=== PATIENT | male | born 1995 | race Caucasian/White ===

== ENCOUNTER 2018-11-30 15:31 | Inpatient (IN) | payer MEDICAID, OTHER ==
[2018-11-30 15:47] VITALS: BMI 18.3
--- NOTE | 2018-11-30 16:01 | ED PDOC ---
Arrival/HPI - General Chief Complaint: Fever Time Seen by Provider: 11/30/18 15:38 Historian: Patient - History of Present Illness Narrative History of Present Illness (Text): 11/30/18 16:01 A 23 year old male with no significant past medical history, presents to the ED complaining of fever for the past week. Patient reports associated sore throat, headache, chills, body aches and dark yellow urine. Patient notes he saw his [facility] doctor (Dr. Soriano) and he sent him in to the ED for an evaluation. Patient denies any dizziness, chest pain, shortness of breath, dyspnea on exertion, cough, abdominal pain, nausea, vomiting, diarrhea, back pain, neck pain, or any other complaints. PMD: Dr. Soriano Time/Duration: 1 week Symptom Onset: Gradual Symptom Course: Unchanged Activities at Onset: Light Context: Home Past Medical History - Provider Review Nursing Documentation Reviewed: Yes Primary Care Provider: Edson Soriano - Infectious Disease Hx of Infectious Diseases: None - Psychiatric Hx Substance Use: Yes - Anesthesia Hx Anesthesia: No Family/Social History - Physician Review Nursing Documentation Reviewed: Yes Family/Social History: Unknown Family HX Smoking Status: Heavy Smoker > 10 Cigarettes Daily Hx Alcohol Use: No Hx Substance Use: Yes Substance used: heroine Allergies/Home Meds Allergies/Adverse Reactions: Allergies No Known Allergies Allergy (Verified 11/30/18 15:47) Home Medications: Home Meds Medication Instructions Recorded Confirmed No Known Home Med 11/30/18 11/30/18 Review of Systems - Physician Review All systems were reviewed & negative as marked: Yes - Review of Systems Constitutional: Fevers Gastrointestinal: absent: Diarrhea Genitourinary Male: absent: Dysuria Neurological: Headache Physical Exam - Physical Exam Narrative Physical Exam (Text): 11/30/18 16:16 Gen: VS reviewed, alert, well developed, well nourished, nontoxic, mild distress. ENT: normal pharynx. Eye: EOMI, PERRL. Neck: no JVD, supple, no adenopathy. CV: regular rate, regular rhythm, no rubs, no murmur, no gallops, S1, S2, pulses equal and strong. Pulm: no distress, clear to auscultation, no wheeze, no rhonchi, breath sounds equal, no rales. Abd: soft, nontender, no guarding, no rebound, no rigidity, normal bowel sounds. Ext: no edema. track juan on both arms. Skin: good color, no rash, no cyanosis, no cellulolytic skin changes. Psych: responds appropriately to questions, normal affect. Neuro: oriented x 3, CN2-12 intact grossly, motor intact, sensation intact. Vital Signs Reviewed: Yes Vital Signs Temp Pulse Resp BP Pulse Ox 11/30/18 15:47 102.5 F H 82 18 99/59 L 98 Temperature: Febrile Blood Pressure: Hypotensive Pulse: Regular Respiratory Rate: Normal Medical Decision Making ED Course and Treatment: 11/30/18 16:18 Impression: A 23 year old patient who presents to the ED complaining of a fever for the past 5 days. Differential Diagnosis included but are not limited to: Plan: -- Labs -- VBG -- EKG -- Chest X-Ray -- Vancomycin injection -- IV Fluids -- Urinalysis -- Reassess and disposition Prior Visits: Notes and results from previous visits were reviewed. Progress Notes: 11/30/18 16:[address] soriano, patient to be admitted for fever and positive blood cultures. Empiric antibiotics started. Patient did not exhibit any s/s of opiod withdrawal during ED course. - Lab Interpretations Narrative Lab Interpretation (Text): 11/30/18 17:42 Chest X-Ray IMPRESSION: No active disease. - RAD Interpretation Radiology Orders: 11/30/18 15:59 CHEST PORTABLE [RAD] Stat - Scribe Statement The provider has reviewed the documentation as recorded by the Radha Mejia Provider Scribe Attestation: All medical record entries made by the Radha were at my direction and personally dictated by me. I have reviewed the chart and agree that the record accurately reflects my personal performance of the history, physical exam, medical decision making, and the department course for this patient. I have also personally directed, reviewed, and agree with the discharge instructions and disposition. Disposition/Present on Arrival - Present on Arrival Any Indicators Present on Arrival: No History of DVT/PE: No History of Uncontrolled Diabetes: No Urinary Catheter: No History of Decub. Ulcer: No History Surgical Site Infection Following: None - Disposition Have Diagnosis and Disposition been Completed?: Yes Diagnosis: Bacteremia Disposition Time: 16:50 Patient Plan: Admission Patient Problems: Current Active Problems Problem Status Onset Bacteremia Acute Condition: STABLE
[2018-11-30] MEDS ORDERED: Vancomycin 500 mg Inj IVPB STA (16:03)
[2018-11-30 16:31] LABS: VENOUS BLOOD GAS BASE EXCESS 0.8 mmol/L (0.0-2.0); VENOUS BLOOD GAS PO2 23 mm/Hg (30-55); VENOUS BLOOD PH 7.37 (7.32-7.43)
[2018-11-30 16:42] LABS: ALB/GLOB RATIO 1.3 (1.1-1.8); ALBUMIN 4.7 g/dL (3.0-4.8); ALT/SGPT 19 U/L (7-56); AST/SGOT 29 U/L (17-59); BASO # 0.02 K/mm3 (0.0-2.0); BASO % 0.2 % (0.0-3.0); BLOOD UREA NITROGEN 12 mg/dL (7-21); CALCIUM 9.4 mg/dL (8.4-10.5); EOS % 0.1 % (1.5-5.0); GFR NON-AFRICAN AMERICAN > 60; HEMOGLOBIN 12.9 g/dL (14.0-18.0); LYMPH % 19.1 % (22.0-35.0); MEAN CELL VOLUME 82.3 fl (80.0-105.0); MEAN CORPUSCULAR HEMOGLOBIN 26.9 pg (25.0-35.0); MEAN CORPUSCULAR HGB CONC 32.7 g/dl (31.0-37.0); MEAN PLATELET VOLUME 9.8 fl (7.0-11.0); MONO # 0.8 (0.1-0.6); MONO % 7.6 % (1.0-6.0); RBC 4.8 10^6/uL (3.5-6.1); RED CELL DISTRIBUTION WIDTH 13.9 % (11.5-14.5); WHITE BLOOD COUNT 10.2 10^3/uL (4.5-11.0)
--- NOTE | 2018-11-30 17:14 | RAD ---
Date of service: 11/30/2018 HISTORY: pneumonia COMPARISON: No prior. FINDINGS: LUNGS: No active pulmonary disease. PLEURA: No significant pleural effusion identified, no pneumothorax apparent. CARDIOVASCULAR: No atherosclerotic calcification present Normal. OSSEOUS STRUCTURES: No significant abnormalities. VISUALIZED UPPER ABDOMEN: Normal. OTHER FINDINGS: None. IMPRESSION: No active disease.
[2018-11-30] MEDS: Sodium Chloride 0.9% 1,000 ML IV SCH ×2 (17:24→23:04)
[2018-11-30 19:39] LABS: URINE BILIRUBIN NEGATIVE (NEGATIVE); URINE BLOOD NEGATIVE (NEGATIVE); URINE GLUCOSE (UA) NEGATIVE (NEGATIVE); URINE LEUKOCYTE ESTERASE NEGATIVE Leu/uL (NEGATIVE); URINE PROTEIN TRACE mg/dL (<30 mg/dL); URINE UROBILINOGEN 0.2 E.U./dL (<1 E.U./dL)
[2018-11-30 19:40] LABS: URINE APPEARANCE CLEAR (CLEAR); URINE COLOR YELLOW (YELLOW)
[2018-11-30 19:51] LABS: URINE BACTERIA FEW /hpf; URINE WBC 0 - 2 /hpf (0-6)
[2018-11-30] MEDS ORDERED: cefTRIAXone 2 GM IN NS 2 GM/100 ML BAG IVPB SCH (20:21)
[2018-11-30] MEDS: Vancomycin 1gm in NS 250ml 1 GM/250 ML BAG IVPB SCH (20:39)
[2018-12-01] MEDS: Oxycodone/Acetaminophen 5/325 mg Tab PO PRN ×3 (01:56→14:26)
[2018-12-01] MEDS: Sodium Chloride 0.9% 1,000 ML IV SCH ×2 (06:35→14:21)
--- NOTE | 2018-12-01 06:50 | CP.PCM.CON ---
<Vaughn Briscoe - Last Filed: 12/01/18 08:04> History of Present Illness - History of Present Illness History of Present Illness: Infectious disease consult note: 23-year-old male with past medical history of IV drug abuse with heroin presents with fevers, chills, and sore throat. Patient states that he was just recently in [facility] for similar symptoms. The report for the hospital stay was sent to his primary doctor and he was instructed to come to the hospital for positive blood cultures. Patient states that he uses heroin on a daily basis last use was yesterday. He denies any prior history of heart disease or endocarditis. He denies any other drug usage. 12 point ROS performed negative other than stated above PMH: As above PSH: Denies Allergies no known allergies SH: IV drug use with heroin, smokes 1 pack/day for past few years, denies any drinking FH: Denies Review of Systems - Review of Systems All systems: reviewed and no additional remarkable complaints except Past Patient History - Infectious Disease Hx of Infectious Diseases: None - Past Social History Smoking Status: Never Smoked - CARDIAC Hx Cardiac Disorders: No - PULMONARY Hx Respiratory Disorders: No - NEUROLOGICAL Hx Neurological Disorder: No - HEENT Hx HEENT Problems: No - RENAL Hx Chronic Kidney Disease: No - ENDOCRINE/METABOLIC Hx Endocrine Disorders: No - HEMATOLOGICAL/ONCOLOGICAL Hx Blood Disorders: No - INTEGUMENTARY Hx Dermatological Problems: No - MUSCULOSKELETAL/RHEUMATOLOGICAL Hx Musculoskeletal Disorders: No Hx Falls: No - GASTROINTESTINAL Hx Gastrointestinal Disorders: No - GENITOURINARY/GYNECOLOGICAL Hx Genitourinary Disorders: No - PSYCHIATRIC Hx Psychophysiologic Disorder: No - SURGICAL HISTORY Hx Surgeries: No - ANESTHESIA Hx Anesthesia: No Meds Allergies/Adverse Reactions: Allergies Allergy/AdvReac Type Severity Reaction Status Date / Time No Known Allergies Allergy Verified 11/30/18 15:47 - Medications Medications: Current Medications Acetaminophen (Tylenol 325mg Tab) 650 mg PO Q4H PRN PRN Reason: Fever >100.4 F Last Admin: 12/01/18 00:00 Dose: 650 mg Home Med (Home Med) 1 unit SL BID IVAN Sodium Chloride (Sodium Chloride 0.9%) 1,000 mls @ 150 mls/hr IV .Q6H40M IVAN Last Admin: 12/01/18 06:35 Dose: 150 mls/hr Ceftriaxone Sodium (Rocephin 2 Gm Ivpb) 2 gm in 100 mls @ 100 mls/hr IVPB DAILY IVAN; Protocol Stop: 12/09/18 20:22 Last Admin: 11/30/18 20:44 Dose: 100 mls/hr Vancomycin HCl (Vancomycin 1gm) 1 gm in 250 mls @ 167 mls/hr IVPB Q12H IVAN; Protocol Stop: 12/08/18 20:31 Last Admin: 11/30/18 20:39 Dose: 167 mls/hr Oxycodone/Acetaminophen (Percocet 5/325 Mg Tab) 1 tab PO Q4 PRN PRN Reason: Pain, moderate (4-7) Stop: 12/03/18 20:01 Last Admin: 12/01/18 01:56 Dose: 1 tab Physical Exam - Constitutional Appears: No Acute Distress - Head Exam Head Exam: ATRAUMATIC, NORMOCEPHALIC - Eye Exam Eye Exam: EOMI, PERRL - ENT Exam ENT Exam: Mucous Membranes Moist - Respiratory Exam Respiratory Exam: Clear to Auscultation Bilateral. absent: Rales, Wheezes - Cardiovascular Exam Cardiovascular Exam: REGULAR RHYTHM, +S1, +S2 - GI/Abdominal Exam GI & Abdominal Exam: Normal Bowel Sounds, Soft. absent: Tenderness - Extremities Exam Extremities exam: Negative for: calf tenderness, pedal edema Additional comments: No lesions Or abnormalities on the extremities, no janeway or osler b/l upper extremity track juan, no cellulites - Neurological Exam Neurological exam: Alert, CN II-XII Intact, Oriented x3 - Psychiatric Exam Psychiatric exam: Normal Mood - Skin Skin Exam: Dry, Warm Results - Vital Signs Recent Vital Signs: Last Vital Signs Temp 98.1 F 12/01/18 06:00 Pulse 96 H 11/30/18 23:01 Resp 20 11/30/18 23:01 BP 114/61 11/30/18 23:01 Pulse Ox 97 11/30/18 23:01 - Labs Result Diagrams: 11/30/18 16:15 11/30/18 16:15 Labs: Laboratory Results - last 24 hr 11/30/18 11/30/18 11/30/18 16:15 16:15 16:20 WBC 10.2 RBC 4.80 Hgb 12.9 L Hct 39.5 L MCV 82.3 MCH 26.9 MCHC 32.7 RDW 13.9 Plt Count 171 MPV 9.8 Neut % (Auto) 73.0 H Lymph % (Auto) 19.1 L Franklin % (Auto) 7.6 H Eos % (Auto) 0.1 L Baso % (Auto) 0.2 Lymph # (Auto) 2.0 Franklin # (Auto) 0.8 H Eos # (Auto) 0.0 Baso # (Auto) 0.02 Absolute Neuts (auto) 7.46 H pO2 23 L VBG pH 7.37 VBG pCO2 46.0 VBG HCO3 26.6 VBG Total CO2 28.0 VBG O2 Sat (Calc) 47.9 VBG Base Excess 0.8 VBG Potassium 4.3 Glucose 87 Lactate 1.0 FiO2 21.0 Sodium 135 132.0 Potassium 4.5 Chloride 97 L 99.0 Carbon Dioxide 27 Anion Gap 16 BUN 12 Creatinine 0.9 Est GFR ( Amer) > 60 Est GFR (Non-Af Amer) > 60 Random Glucose 94 Calcium 9.4 Total Bilirubin 0.8 AST 29 ALT 19 Alkaline Phosphatase 89 Total Protein 8.4 H Albumin 4.7 Globulin 3.7 Albumin/Globulin Ratio 1.3 Venous Blood Potassium 4.3 Urine Color Urine Appearance Urine pH Ur Specific [place] Urine Protein Urine Glucose (UA) Urine Ketones Urine Blood Urine Nitrate Urine Bilirubin Urine Urobilinogen Ur Leukocyte Esterase Urine RBC Urine WBC Urine Bacteria 11/30/18 19:29 WBC RBC Hgb Hct MCV MCH MCHC RDW Plt Count MPV Neut % (Auto) Lymph % (Auto) Franklin % (Auto) Eos % (Auto) Baso % (Auto) Lymph # (Auto) Franklin # (Auto) Eos # (Auto) Baso # (Auto) Absolute Neuts (auto) pO2 VBG pH VBG pCO2 VBG HCO3 VBG Total CO2 VBG O2 Sat (Calc) VBG Base Excess VBG Potassium Glucose Lactate FiO2 Sodium Potassium Chloride Carbon Dioxide Anion Gap BUN Creatinine Est GFR ( Amer) Est GFR (Non-Af Amer) Random Glucose Calcium Total Bilirubin AST ALT Alkaline Phosphatase Total Protein Albumin Globulin Albumin/Globulin Ratio Venous Blood Potassium Urine Color Yellow Urine Appearance Clear Urine pH 6.0 Ur Specific [place] 1.020 Urine Protein Trace H Urine Glucose (UA) Negative Urine Ketones Trace H Urine Blood Negative Urine Nitrate Negative Urine Bilirubin Negative Urine Urobilinogen 0.2 Ur Leukocyte Esterase Negative Urine RBC None Urine WBC 0 - 2 Urine Bacteria Few Assessment & Plan - Assessment and Plan (Free Text) Assessment: Sepsis with Bacteremiarule out endocarditis IV drug abuse with heroin Active smoker Continue with vancomycin and meropenem Follow-up repeat blood cultures and septic work-up Obtain echo to rule out any endocarditis Follow-up cardiology recommendations consult Continue to monitor for any changes Case and plan was to be reviewed and discussed with Dr. Vickers <Lenny Vickers - Last Filed: 12/01/18 08:05> Meds - Medications Medications: Current Medications Acetaminophen (Tylenol 325mg Tab) 650 mg PO Q4H PRN PRN Reason: Fever >100.4 F Last Admin: 12/01/18 00:00 Dose: 650 mg Home Med (Home Med) 1 unit SL BID IVAN Sodium Chloride (Sodium Chloride 0.9%) 1,000 mls @ 150 mls/hr IV .Q6H40M IVAN Last Admin: 12/01/18 06:35 Dose: 150 mls/hr Vancomycin HCl (Vancomycin 1gm) 1 gm in 250 mls @ 167 mls/hr IVPB Q12H IVAN; Protocol Stop: 12/08/18 20:31 Last Admin: 11/30/18 20:39 Dose: 167 mls/hr Meropenem (Merrem Iv 1 Gm Premix) 1 gm in 50 mls @ 100 mls/hr IVPB Q8 IVAN; Protocol Stop: 12/10/18 14:01 Oxycodone/Acetaminophen (Percocet 5/325 Mg Tab) 1 tab PO Q4 PRN PRN Reason: Pain, moderate (4-7) Stop: 12/03/18 20:01 Last Admin: 12/01/18 01:56 Dose: 1 tab Results - Vital Signs Recent Vital Signs: Last Vital Signs Temp 98.1 F 12/01/18 06:00 Pulse 78 12/01/18 06:00 Resp 19 12/01/18 06:00 BP 127/79 12/01/18 06:00 Pulse Ox 97 12/01/18 06:00 - Labs Result Diagrams: 11/30/18 16:15 11/30/18 16:15 Labs: Laboratory Results - last 24 hr 11/30/18 11/30/18 11/30/18 16:15 16:15 16:15 WBC 10.2 RBC 4.80 Hgb 12.9 L Hct 39.5 L MCV 82.3 MCH 26.9 MCHC 32.7 RDW 13.9 Plt Count 171 MPV 9.8 Neut % (Auto) 73.0 H Lymph % (Auto) 19.1 L Franklin % (Auto) 7.6 H Eos % (Auto) 0.1 L Baso % (Auto) 0.2 Lymph # (Auto) 2.0 Franklin # (Auto) 0.8 H Eos # (Auto) 0.0 Baso # (Auto) 0.02 Absolute Neuts (auto) 7.46 H pO2 VBG pH VBG pCO2 VBG HCO3 VBG Total CO2 VBG O2 Sat (Calc) VBG Base Excess VBG Potassium Glucose Lactate FiO2 Sodium 135 Potassium 4.5 Chloride 97 L Carbon Dioxide 27 Anion Gap 16 BUN 12 Creatinine 0.9 Est GFR ( Amer) > 60 Est GFR (Non-Af Amer) > 60 Random Glucose 94 Calcium 9.4 Total Bilirubin 0.8 AST 29 ALT 19 Alkaline Phosphatase 89 Total Protein 8.4 H Albumin 4.7 Globulin 3.7 Albumin/Globulin Ratio 1.3 Venous Blood Potassium Urine Color Urine Appearance Urine pH Ur Specific [place] Urine Protein Urine Glucose (UA) Urine Ketones Urine Blood Urine Nitrate Urine Bilirubin Urine Urobilinogen Ur Leukocyte Esterase Urine RBC Urine WBC Urine Bacteria HIV 1&2 Ag/Ab, 4th Gen Nonreactive 11/30/18 11/30/18 16:20 19:29 WBC RBC Hgb Hct MCV MCH MCHC RDW Plt Count MPV Neut % (Auto) Lymph % (Auto) Franklin % (Auto) Eos % (Auto) Baso % (Auto) Lymph # (Auto) Franklin # (Auto) Eos # (Auto) Baso # (Auto) Absolute Neuts (auto) pO2 23 L VBG pH 7.37 VBG pCO2 46.0 VBG HCO3 26.6 VBG Total CO2 28.0 VBG O2 Sat (Calc) 47.9 VBG Base Excess 0.8 VBG Potassium 4.3 Glucose 87 Lactate 1.0 FiO2 21.0 Sodium 132.0 Potassium Chloride 99.0 Carbon Dioxide Anion Gap BUN Creatinine Est GFR ( Amer) Est GFR (Non-Af Amer) Random Glucose Calcium Total Bilirubin AST ALT Alkaline Phosphatase Total Protein Albumin Globulin Albumin/Globulin Ratio Venous Blood Potassium 4.3 Urine Color Yellow Urine Appearance Clear Urine pH 6.0 Ur Specific [place] 1.020 Urine Protein Trace H Urine Glucose (UA) Negative Urine Ketones Trace H Urine Blood Negative Urine Nitrate Negative Urine Bilirubin Negative Urine Urobilinogen 0.2 Ur Leukocyte Esterase Negative Urine RBC None Urine WBC 0 - 2 Urine Bacteria Few HIV 1&2 Ag/Ab, 4th Gen Attending/Attestation - Attestation I have personally seen and examined this patient.: Yes I have fully participated in the care of the patient.: Yes I have reviewed all pertinent clinical information: Yes
--- NOTE | 2018-12-01 08:28 | CP.PCM.CON ---
History of Present Illness - History of Present Illness History of Present Illness: Awake, alert, no distress Reason for consultation: Cardiac evaluation to rule out endocarditis, admitted for fever and chills Brief history of present illness: A 23 year old male who came in to the ER due to fever, chills and sore throat for the past few days. He was just recently seen at [facility] for similar symptoms. He claimed to take heroin at least 10 bags per day. Last drug use was yesterday and then felt fever and chills. Denies any other medical history. He smokes 1 pack per day for the past few years. Consult was called to rule out endocarditis. Seen and examined by me and Dr. Abel Review of Systems - Review of Systems All systems: reviewed and no additional remarkable complaints except Review of Systems: as per HPI Past Patient History - Infectious Disease Hx of Infectious Diseases: None - Past Social History Smoking Status: Never Smoked - CARDIAC Hx Cardiac Disorders: No - PULMONARY Hx Respiratory Disorders: No - NEUROLOGICAL Hx Neurological Disorder: No - HEENT Hx HEENT Problems: No - RENAL Hx Chronic Kidney Disease: No - ENDOCRINE/METABOLIC Hx Endocrine Disorders: No - HEMATOLOGICAL/ONCOLOGICAL Hx Blood Disorders: No - INTEGUMENTARY Hx Dermatological Problems: No - MUSCULOSKELETAL/RHEUMATOLOGICAL Hx Musculoskeletal Disorders: No Hx Falls: No - GASTROINTESTINAL Hx Gastrointestinal Disorders: No - GENITOURINARY/GYNECOLOGICAL Hx Genitourinary Disorders: No - PSYCHIATRIC Hx Psychophysiologic Disorder: No - SURGICAL HISTORY Hx Surgeries: No - ANESTHESIA Hx Anesthesia: No Meds Allergies/Adverse Reactions: Allergies Allergy/AdvReac Type Severity Reaction Status Date / Time No Known Allergies Allergy Verified 11/30/18 15:47 - Medications Medications: Current Medications Acetaminophen (Tylenol 325mg Tab) 650 mg PO Q4H PRN PRN Reason: Fever >100.4 F Last Admin: 12/01/18 00:00 Dose: 650 mg Clonazepam (Klonopin) 0.5 mg PO BID IVAN; Protocol Home Med (Home Med) 1 unit SL BID IVAN Sodium Chloride (Sodium Chloride 0.9%) 1,000 mls @ 150 mls/hr IV .Q6H40M IVAN Last Admin: 12/01/18 06:35 Dose: 150 mls/hr Vancomycin HCl (Vancomycin 1gm) 1 gm in 250 mls @ 167 mls/hr IVPB Q12H IVAN; Protocol Stop: 12/08/18 20:31 Last Admin: 11/30/18 20:39 Dose: 167 mls/hr Meropenem (Merrem Iv 1 Gm Premix) 1 gm in 50 mls @ 100 mls/hr IVPB Q8 IVAN; Protocol Stop: 12/10/18 14:01 Oxycodone/Acetaminophen (Percocet 5/325 Mg Tab) 1 tab PO Q4 PRN PRN Reason: Pain, moderate (4-7) Stop: 12/03/18 20:01 Last Admin: 12/01/18 01:56 Dose: 1 tab Physical Exam - Constitutional Appears: Non-toxic, No Acute Distress - Head Exam Head Exam: NORMAL INSPECTION, NORMOCEPHALIC - Eye Exam Eye Exam: Normal appearance Pupil Exam: NORMAL ACCOMODATION - ENT Exam ENT Exam: Mucous Membranes Moist, Normal Exam - Respiratory Exam Respiratory Exam: Decreased Breath Sounds, Clear to Auscultation Bilateral, NORMAL BREATHING PATTERN - Cardiovascular Exam Cardiovascular Exam: +S1, +S2 - GI/Abdominal Exam GI & Abdominal Exam: Normal Bowel Sounds, Soft - Neurological Exam Neurological exam: Alert, Oriented x3 - Psychiatric Exam Psychiatric exam: Normal Affect, Normal Mood - Skin Skin Exam: Dry, Warm Results - Vital Signs Recent Vital Signs: Last Vital Signs Temp 98.1 F 12/01/18 06:00 Pulse 78 12/01/18 06:00 Resp 19 12/01/18 06:00 BP 127/79 12/01/18 06:00 Pulse Ox 97 12/01/18 06:00 - Labs Result Diagrams: 11/30/18 16:15 11/30/18 16:15 Labs: Laboratory Results - last 24 hr 11/30/18 11/30/18 11/30/18 16:15 16:15 16:15 WBC 10.2 RBC 4.80 Hgb 12.9 L Hct 39.5 L MCV 82.3 MCH 26.9 MCHC 32.7 RDW 13.9 Plt Count 171 MPV 9.8 Neut % (Auto) 73.0 H Lymph % (Auto) 19.1 L Lamar % (Auto) 7.6 H Eos % (Auto) 0.1 L Baso % (Auto) 0.2 Lymph # (Auto) 2.0 Lamar # (Auto) 0.8 H Eos # (Auto) 0.0 Baso # (Auto) 0.02 Absolute Neuts (auto) 7.46 H pO2 VBG pH VBG pCO2 VBG HCO3 VBG Total CO2 VBG O2 Sat (Calc) VBG Base Excess VBG Potassium Glucose Lactate FiO2 Sodium 135 Potassium 4.5 Chloride 97 L Carbon Dioxide 27 Anion Gap 16 BUN 12 Creatinine 0.9 Est GFR ( Amer) > 60 Est GFR (Non-Af Amer) > 60 Random Glucose 94 Calcium 9.4 Total Bilirubin 0.8 AST 29 ALT 19 Alkaline Phosphatase 89 Total Protein 8.4 H Albumin 4.7 Globulin 3.7 Albumin/Globulin Ratio 1.3 Venous Blood Potassium Urine Color Urine Appearance Urine pH Ur Specific [place] Urine Protein Urine Glucose (UA) Urine Ketones Urine Blood Urine Nitrate Urine Bilirubin Urine Urobilinogen Ur Leukocyte Esterase Urine RBC Urine WBC Urine Bacteria HIV 1&2 Ag/Ab, 4th Gen Nonreactive 11/30/18 11/30/18 16:20 19:29 WBC RBC Hgb Hct MCV MCH MCHC RDW Plt Count MPV Neut % (Auto) Lymph % (Auto) Lamar % (Auto) Eos % (Auto) Baso % (Auto) Lymph # (Auto) Lamar # (Auto) Eos # (Auto) Baso # (Auto) Absolute Neuts (auto) pO2 23 L VBG pH 7.37 VBG pCO2 46.0 VBG HCO3 26.6 VBG Total CO2 28.0 VBG O2 Sat (Calc) 47.9 VBG Base Excess 0.8 VBG Potassium 4.3 Glucose 87 Lactate 1.0 FiO2 21.0 Sodium 132.0 Potassium Chloride 99.0 Carbon Dioxide Anion Gap BUN Creatinine Est GFR ( Amer) Est GFR (Non-Af Amer) Random Glucose Calcium Total Bilirubin AST ALT Alkaline Phosphatase Total Protein Albumin Globulin Albumin/Globulin Ratio Venous Blood Potassium 4.3 Urine Color Yellow Urine Appearance Clear Urine pH 6.0 Ur Specific [place] 1.020 Urine Protein Trace H Urine Glucose (UA) Negative Urine Ketones Trace H Urine Blood Negative Urine Nitrate Negative Urine Bilirubin Negative Urine Urobilinogen 0.2 Ur Leukocyte Esterase Negative Urine RBC None Urine WBC 0 - 2 Urine Bacteria Few HIV 1&2 Ag/Ab, 4th Gen Assessment & Plan - Assessment and Plan (Free Text) Assessment: A 23 year old male who came in to the ER due to fever, chills and sore throat for the past few days. He was just recently seen at [facility] for similar symptoms. He claimed to take heroin at least 10 bags per day. Last drug use was yesterday and then felt fever and chills. Seen by PMD and sent to ER for positive blood cultures. Denies any other medical history. He smokes 1 pack per day for the past few years. He does not work and does not go to school. Consult was called to rule out endocarditis. Will order echo to rule out endocarditis. ID on consult. Started on IV antibiotics. Repeat blood and urine culture ordered. Plan: No distress Will order echo to rule out endocarditis ID on consult Continue IV antibiotics as ordered Repeat blood and urine culture Continue current treatment Continue current medications Watch out for withdrawal symptoms Further recommendations after ECHO Lifestyle modification Complete cessation of heroin use and smoking Nicoderm patch Will follow up Plan and treatment discussed with Dr. Abel Thank you Dr. Weiss for the opportunity of taking care of Doni Hill - Date & Time Date: 12/01/18 Time: 06:20
[2018-12-01] MEDS: Vancomycin 1gm in NS 250ml 1 GM/250 ML BAG IVPB SCH ×2 (09:17→21:41)
[2018-12-01] MEDS: Pantoprazole 40 mg EC Tab PO SCH (09:29)
[2018-12-01] MEDS ORDERED: Meropenem IV 1 gm in NS 1 GM/50 ML BAG IVPB SCH (14:00)
--- NOTE | 2018-12-01 15:51 | CARD ---
APPROVED REPORT Date of service: 11/30/2018 EKG Measurement Heart [id number] <Conclusion> Normal sinus rhythm with sinus arrhythmia Normal Electrocardiogram
[2018-12-01] MEDS: SUBUTEX 8 MG SL SCH (17:27)
[2018-12-01] MEDS ORDERED: Oxycodone/Acetaminophen 5/325 mg Tab PO ONE (18:45)
--- NOTE | 2018-12-01 19:36 | HP ---
DATE OF EXAM: 12/01/2018 HISTORY OF PRESENT ILLNESS: The patient came in our office for evaluation of his addiction problem of heroin, found to have gram-positive cocci in the blood x2, blood cultures results sent to me by [facility] laboratory. The patient had a fever and has chills, he does use IV drugs. The patient was advised to be admitted to [facility] for further evaluation of possible endocarditis and endovascular infections and ID consultations and cardiac consultations. PAST MEDICAL HISTORY: As above. ALLERGIES: HE HAS NO KNOWN ALLERGY. SOCIAL HISTORY: He is not working, he will work on and off, but with the heroin he is not. 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 He has a very supportive father, family. REVIEW OF SYSTEMS: Usually negative except some anxiety probably from not having the drugs and some episodic over activity from not having the heroin. He usually in the past had used Xanax and sometimes Klonopin, which make him feel better if he does not have heroin, but otherwise physically he feels okay, all his symptoms are more drug related mental symptoms. PHYSICAL EXAMINATION VITAL SIGNS: Temperature 102.3, heart rate 89, blood pressure 99/70, respirations 19, and sat 98%. HEAD AND NECK: Normal. No JVD, no thyromegaly. CHEST: Clear bilateral. CARDIAC: First sound and second sound normal with a very faint murmur. ABDOMEN: Soft and nontender. EXTREMITIES: No edema. NEUROLOGIC: Normal. LABORATORY STUDY: White count 10.2, hemoglobin 12.9, hematocrit 39.5, platelets 171. Sodium 135, potassium 4.5, chloride 97, bicarb 27, BUN 12, creatinine 0.9. Liver function test is normal. Total protein 8.4. IMPRESSION AND PLAN: Gram-positive bacteremia, fever, sepsis, possible endocarditis. Cardiology consult Dr. Abel; Infectious Disease consult, Dr. Vickers. Intravenous fluids. We will give him some Percocet to relieve his addiction symptoms for now. Continue Percocet, we will give him some Neurontin, Motrin for symptomatic relief, maybe some Zanaflex, alpha blockers. We will continue current therapy for now. We will get a Psychiatry consult and we will follow up clinically. Protonix, Klonopin and we will start some Subutex for him in the morning and we will continue current therapy. Edson Weiss MD
--- NOTE | 2018-12-02 07:09 | CP.PCM.PN ---
Subjective - Date & Time of Evaluation Date of Evaluation: 12/02/18 Time of Evaluation: 06:35 - Subjective Subjective: Awake, alert, no distress, feels okay Reason for consultation and follow up: Cardiac evaluation to rule out endocarditis, admitted for fever and chills,current heroin drug use Seen and examined by me and Dr. Abel Objective - Vital Signs/Intake and Output Vital Signs (last 24 hours): Temp Pulse Resp BP Pulse Ox 98.7 F 52 L 18 87/44 L 97 12/01/18 22:34 12/01/18 22:34 12/01/18 22:34 12/01/18 22:34 12/01/18 22:34 Intake and Output: 12/02/18 12/02/18 06:59 18:59 Intake Total 620 Balance 620 - Medications Medications: Current Medications Acetaminophen (Tylenol 325mg Tab) 650 mg PO Q4H PRN PRN Reason: Fever >100.4 F Last Admin: 12/01/18 00:00 Dose: 650 mg Clonazepam (Klonopin) 0.5 mg PO TID [facility]; Protocol Last Admin: 12/01/18 22:52 Dose: 0.5 mg Gabapentin (Neurontin) 100 mg PO BID [facility]; Protocol Last Admin: 12/01/18 17:26 Dose: 100 mg Home Med (Home Med) 1 unit SL BID [facility] Last Admin: 12/01/18 17:27 Dose: Not Given Sodium Chloride (Sodium Chloride 0.9%) 1,000 mls @ 150 mls/hr IV .Q6H40M [facility] Last Admin: 12/01/18 14:21 Dose: 150 mls/hr Vancomycin HCl (Vancomycin 1gm) 1 gm in 250 mls @ 167 mls/hr IVPB Q12H [facility]; Protocol Stop: 12/08/18 20:31 Last Admin: 12/01/18 21:41 Dose: 167 mls/hr Nafcillin Sodium 2 gm/ (Dextrose) 100 mls @ 100 mls/hr IVPB Q6 [facility]; Protocol Stop: 12/10/18 21:01 Last Admin: 12/02/18 01:25 Dose: Not Given Ibuprofen (Motrin Tab) 400 mg PO Q6H PRN PRN Reason: Pain, Mild (1-3) Mirtazapine (Remeron) 15 mg PO HS [facility] Last Admin: 12/01/18 22:52 Dose: 15 mg Nicotine (Nicoderm Cq) 1 patch TD DAILY [facility] Last Admin: 12/01/18 09:17 Dose: 1 patch Oxycodone/Acetaminophen (Percocet 5/325 Mg Tab) 1 tab PO Q4 PRN PRN Reason: Pain, moderate (4-7) Stop: 12/03/18 20:01 Last Admin: 12/01/18 14:26 Dose: 1 tab Pantoprazole Sodium (Protonix Ec Tab) 40 mg PO ACB [facility] Last Admin: 12/01/18 09:29 Dose: 40 mg Tizanidine HCl (Zanaflex) 4 mg PO TID [facility] Last Admin: 12/01/18 17:26 Dose: 4 mg - Labs Labs: 11/30/18 16:15 11/30/18 16:15 - Constitutional Appears: Non-toxic, No Acute Distress - Head Exam Head Exam: NORMAL INSPECTION, NORMOCEPHALIC - Eye Exam Eye Exam: Normal appearance Pupil Exam: NORMAL ACCOMODATION - ENT Exam ENT Exam: Mucous Membranes Moist, Normal Exam - Respiratory Exam Respiratory Exam: Clear to Ausculation Bilateral, NORMAL BREATHING PATTERN - Cardiovascular Exam Cardiovascular Exam: +S1, +S2 - GI/Abdominal Exam GI & Abdominal Exam: Soft, Normal Bowel Sounds - Extremities Exam Extremities Exam: Full ROM, Normal Capillary Refill - Neurological Exam Neurological Exam: Alert, Awake, Oriented x3 - Psychiatric Exam Psychiatric exam: Normal Affect, Normal Mood - Skin Skin Exam: Dry, Normal Color, Warm Assessment and Plan - Assessment and Plan (Free Text) Assessment: A 23 year old male who came in to the ER due to fever, chills and sore throat for the past few days. He was just recently seen at [facility] for similar symptoms. He claimed to take heroin at least 10 bags per day. Last drug use was yesterday and then felt fever and chills. Seen by PMD and sent to ER for positive blood cultures. Denies any other medical history. He smokes 1 pack per day for the past few years. He does not work and does not go to school. Consult was called to rule out endocarditis. ID on consult. Continue IV antibiotics.culture Echo done yesterday and showed LVEF 57%, mild enlargement of the left atrium, mild posteriormitral valve prolapse, moderate mitral regurgiation, RVSP 29 mmHg,no pericardial effusion, NO VEGETATION noted. Ruled out endocarditis. No distress. Blood culture positive for gram positive cocci, repeat blood culture done today. Plan: No distress Echo and NO VEGETATION noted ID on consult Continue IV antibiotics as ordered Repeat blood culture today Continue current treatment Continue current medications Watch out for withdrawal symptoms Lifestyle modification Complete cessation of heroin use and smoking Will follow up Plan and treatment discussed with Dr. Abel
[2018-12-02 07:10] LABS: BASO # 0.02 K/mm3 (0.0-2.0); BASO % 0.3 % (0.0-3.0); EOS # 0.2 (0.0-0.7); EOS % 2.2 % (1.5-5.0); HEMOGLOBIN 11.7 g/dL (14.0-18.0); LYMPH # 3.7 (1.2-3.4); LYMPH % 52.9 % (22.0-35.0); MEAN CELL VOLUME 83.3 fl (80.0-105.0); MEAN CORPUSCULAR HEMOGLOBIN 26.8 pg (25.0-35.0); MEAN CORPUSCULAR HGB CONC 32.2 g/dl (31.0-37.0); MEAN PLATELET VOLUME 10.1 fl (7.0-11.0); MONO # 0.7 (0.1-0.6); MONO % 10.1 % (1.0-6.0); RBC 4.36 10^6/uL (3.5-6.1); RED CELL DISTRIBUTION WIDTH 14.1 % (11.5-14.5); WHITE BLOOD COUNT 6.9 10^3/uL (4.5-11.0)
[2018-12-02 07:23] LABS: ALB/GLOB RATIO 1.1 (1.1-1.8); ALBUMIN 3.7 g/dL (3.0-4.8); ALT/SGPT 23 U/L (7-56); AST/SGOT 22 U/L (17-59); BLOOD UREA NITROGEN 9 mg/dL (7-21); GFR NON-AFRICAN AMERICAN > 60; HDL CHOLESTEROL 24 mg/dL (29-60)
[2018-12-02 07:33] LABS: LDL CHOLESTEROL 113 mg/dL (0-129)
[2018-12-02] MEDS: Vancomycin 1gm in NS 250ml 1 GM/250 ML BAG IVPB SCH ×2 (08:27→21:00)
[2018-12-02] MEDS: Pantoprazole 40 mg EC Tab PO SCH (08:28)
--- NOTE | 2018-12-02 09:22 | CARD ---
APPROVED REPORT Date of service: 12/01/2018 EXAM: Two-dimensional and M-mode echocardiogram with Doppler and color Doppler. INDICATION Infection:Rule out subacute bacterial endocarditis 2D DIMENSIONS Left Atrium (2D)4.3 (1.6-4.0cm)IVSd0.9 (0.7-1.1cm) LVDd5.1 (3.9-5.9cm)PWd1.0 (0.7-1.1cm) LVDs3.6 (2.5-4.0cm)FS (%) 30.0 % LVEF (%)57.1 (>50%) M-Mode DIMENSIONS Aortic Root3.20 (2.2-3.7cm)Aortic Cusp Exc.2.40 (1.5-2.0cm) Aortic Valve AoV Peak Coxogldr533.0cm/Carola Peak GR.7mmHg Mitral Valve MV E Cmxprqvk43.7cm/sMV A Ddtpccpp49.5cm/sE/A ratio2.7 TDI E/Lateral E'0.0E/Medial E'0.0 Pulmonary Valve PV Peak Voalbjgh56.9cm/sPV Peak Grad.3mmHg Tricuspid Valve TR Peak Rbdqdoob767gq/sRAP [id number] Peak Gr.19mmHg [id number] LEFT VENTRICLE The left ventricle is normal size. The left ventricular function is normal. The left ventricular ejection fraction is within the normal range.Ej.Fr:57%. RIGHT VENTRICLE The right ventricle is normal size. The right ventricular systolic function is normal. ATRIA The left atrium size is normal. The right atrium size is normal. AORTIC VALVE The aortic valve is normal in structure. MITRAL VALVE Mitral Valve shows Mild Posterior motion suggestive of Mild Prolapse. Mitral regurgitation is moderate. There is no mitral valve stenosis. Redundant elongated chordae are noted. TRICUSPID VALVE The tricuspid valve is normal in structure. RVSP:29mm Hg. PERICARDIAL EFFUSION There is no pericardial effusion. <Conclusion> The left ventricle is normal size. The left ventricular function is normal. The left ventricular ejection fraction is within the normal range.Ej.Fr:57%. The right ventricle is normal size. The right ventricular systolic function is normal. The left atrium shows mild enlargement. The right atrium size is normal. The aortic valve is normal in structure. Mitral Valve shows Mild Posterior motion suggestive of Mild Prolapse. Redundant Chordae noted Moderate Mitral Regurge. The tricuspid valve is normal in structure. The tricuspid valve is normal in structure. RVSP:29mm Hg. There is no pericardial effusion. No vegetation noted.
[2018-12-02] MEDS: SUBUTEX 8 MG SL SCH ×2 (09:45→17:34)
--- NOTE | 2018-12-02 13:37 | CON ---
DATE OF CONSULTATION: 12/02/2018 HISTORY OF PRESENT ILLNESS: In short, the patient is a 23-year-old gentleman. The patient does not have any significant past medical history. The patient was admitted on the medical side for fevers for the past week. The patient reported that he had sore throat, headaches, chills, body aches, and dark yellow urine. In the emergency room, urine drug screen was not done. The patient most likely is using opioids, blood showed gram-positive cocci and sepsis. Psych consult was called for evaluation of anxiety. The patient was seen and examined today at the morning time. The patient presented to be withdrawn and disengaged. The patient is laying in darkness and also it is very hot in his room. The patient most likely was feeling chills, that is why he requested to turn the heater on. The patient was disengaged and not willing to have interview. The patient was giving only yes/no answers. The patient denied that he feels depressed. The patient denied feeling anxious. The patient reported that he slept well. The patient denied being seen by psychiatrist in the past. The patient denied being on any psychotropic medications. The patient denied hearing voices, denied seeing things. Collaterals were obtained from the patient's nurse. The patient does not exhibit any aggressive or agitated behavior. The patient is compliant with the medications and treatment plan offered. PHYSICAL EXAMINATION: VITAL SIGNS: Reviewed. Temperature 98.8, pulse is 52, blood pressure 87/44, respirations 18, oxygen saturation is 97. MEDICATIONS: Reviewed. The patient is on Klonopin 0.5 mg three times a day. HOME MEDICATION: Subutex ordered, Remeron 15 mg was started. The patient is on antibiotics, (nafcillin), and also vancomycin. The patient also is on Lyrica, Protonix, Nicoderm. LABORATORY DATA: Labs reviewed, and this grant writer reported that the patient has gram-positive cocci in the blood. MENTAL STATUS EVALUATION: The patient presented to be disengaged and withdrawn, laying in darkness. Mood described as okay. Affect was flat. Thought process was concrete. Thought content, the patient denied hearing voices, denied seeing things, denied paranoid ideation. The patient denied thoughts of harming himself or others. The patient denied feeling anxious. The patient does not present to be psychotic or depressed. Insight and judgment seemed to be limited until possible opioid addiction. Impulses are well controlled. IMPRESSION: Sepsis, most likely the patient has opioid use disorder, but the patient was not forthcoming with information. PLAN: Subutex was ordered by medical team. Monitor withdrawal symptoms. Remeron and Klonopin were started by medical team. The patient did not want this grant writer to follow up on him. We will respect that decision. The patient is not agitated, not aggressive. Burglar Alarm Superintendent needed to be involved. If the patient is using drugs, inpatient rehab should be offered. Meanwhile re-consult as needed. Jessica Mustafa MD
[2018-12-02] MEDS ORDERED: Potassium Chloride 20 mEq ER Tab PO ONE (15:18)
--- NOTE | 2018-12-02 16:03 | CP.PCM.PN ---
<Vaughn Briscoe - Last Filed: 12/02/18 16:01> Subjective - Date & Time of Evaluation Date of Evaluation: 12/02/18 Time of Evaluation: 10:00 - Subjective Subjective: Infectious disease progress note: Patient seen and examined at bedside. No acute events overnight. Denies any fever or chills at this time. No other complaints. 12 point ROS performed and negative unless stated above. Objective - Vital Signs/Intake and Output Vital Signs (last 24 hours): Temp Pulse Resp BP Pulse Ox 98.7 F 52 L 18 87/44 L 97 12/01/18 22:34 12/01/18 22:34 12/01/18 22:34 12/01/18 22:34 12/01/18 22:34 Intake and Output: 12/02/18 12/02/18 06:59 18:59 Intake Total 620 180 Balance 620 180 - Medications Medications: Current Medications Acetaminophen (Tylenol 325mg Tab) 650 mg PO Q4H PRN PRN Reason: Fever >100.4 F Last Admin: 12/01/18 00:00 Dose: 650 mg Clonazepam (Klonopin) 0.5 mg PO TID [facility]; Protocol Last Admin: 12/02/18 13:38 Dose: 0.5 mg Home Med (Home Med) 1 unit SL BID [facility] Last Admin: 12/02/18 09:45 Dose: Not Given Sodium Chloride (Sodium Chloride 0.9%) 1,000 mls @ 150 mls/hr IV .Q6H40M [facility] Last Admin: 12/01/18 14:21 Dose: 150 mls/hr Vancomycin HCl (Vancomycin 1gm) 1 gm in 250 mls @ 167 mls/hr IVPB Q12H [facility]; Protocol Stop: 12/08/18 20:31 Last Admin: 12/02/18 08:27 Dose: 167 mls/hr Nafcillin Sodium 2 gm/ (Dextrose) 100 mls @ 100 mls/hr IVPB Q6 [facility]; Protocol Stop: 12/10/18 21:01 Last Admin: 12/02/18 12:15 Dose: 100 mls/hr Ibuprofen (Motrin Tab) 400 mg PO Q6H PRN PRN Reason: Pain, Mild (1-3) Mirtazapine (Remeron) 15 mg PO HS [facility] Last Admin: 12/01/18 22:52 Dose: 15 mg Nicotine (Nicoderm Cq) 1 patch TD DAILY [facility] Last Admin: 12/02/18 09:46 Dose: Not Given Pantoprazole Sodium (Protonix Ec Tab) 40 mg PO ACB [facility] Last Admin: 12/02/18 08:28 Dose: 40 mg Pregabalin (Lyrica) 50 mg PO BID [facility] Last Admin: 12/02/18 09:43 Dose: 50 mg Tizanidine HCl (Zanaflex) 4 mg PO TID [facility] Last Admin: 12/02/18 13:38 Dose: 4 mg - Labs Labs: 12/02/18 06:40 12/02/18 06:40 - Constitutional Appears: No Acute Distress - Head Exam Head Exam: ATRAUMATIC, NORMOCEPHALIC - Eye Exam Eye Exam: EOMI - ENT Exam ENT Exam: Mucous Membranes Moist - Respiratory Exam Respiratory Exam: Clear to Ausculation Bilateral. absent: Wheezes - Cardiovascular Exam Cardiovascular Exam: REGULAR RHYTHM, +S1, +S2. absent: Murmur - Extremities Exam Extremities Exam: absent: Calf Tenderness, Pedal Edema - Neurological Exam Neurological Exam: Alert, Awake - Psychiatric Exam Psychiatric exam: Normal Mood - Skin Skin Exam: Dry, Warm Assessment and Plan - Assessment and Plan (Free Text) Assessment: Sepsis with Bacteremia with gram positve cocci IV drug abuse with heroin Active smoker Continue with Vancomycin and started with Nafcillin Follow-up repeat blood cultures and septic work-up Obtain echo - no vegatations indicative of endocarditis Follow-up cardiology recommendations consult Continue to monitor for any changes Case and plan was to be reviewed and discussed with Dr. Vickers <Lenny Vickers - Last Filed: 12/02/18 16:17> Objective - Vital Signs/Intake and Output Vital Signs (last 24 hours): Temp Pulse Resp BP Pulse Ox 98.7 F 52 L 18 87/44 L 97 12/01/18 22:34 12/01/18 22:34 12/01/18 22:34 12/01/18 22:34 12/01/18 22:34 Intake and Output: 12/02/18 12/02/18 06:59 18:59 Intake Total 620 180 Balance 620 180 - Medications Medications: Current Medications Acetaminophen (Tylenol 325mg Tab) 650 mg PO Q4H PRN PRN Reason: Fever >100.4 F Last Admin: 12/01/18 00:00 Dose: 650 mg Clonazepam (Klonopin) 0.5 mg PO TID [facility]; Protocol Last Admin: 12/02/18 13:38 Dose: 0.5 mg Home Med (Home Med) 1 unit SL BID [facility] Last Admin: 12/02/18 09:45 Dose: Not Given Sodium Chloride (Sodium Chloride 0.9%) 1,000 mls @ 150 mls/hr IV .Q6H40M [facility] Last Admin: 12/01/18 14:21 Dose: 150 mls/hr Vancomycin HCl (Vancomycin 1gm) 1 gm in 250 mls @ 167 mls/hr IVPB Q12H [facility]; Protocol Stop: 12/08/18 20:31 Last Admin: 12/02/18 08:27 Dose: 167 mls/hr Nafcillin Sodium 2 gm/ (Dextrose) 100 mls @ 100 mls/hr IVPB Q6 [facility]; Protocol Stop: 12/10/18 21:01 Last Admin: 12/02/18 12:15 Dose: 100 mls/hr Ibuprofen (Motrin Tab) 400 mg PO Q6H PRN PRN Reason: Pain, Mild (1-3) Mirtazapine (Remeron) 15 mg PO HS [facility] Last Admin: 12/01/18 22:52 Dose: 15 mg Nicotine (Nicoderm Cq) 1 patch TD DAILY [facility] Last Admin: 12/02/18 09:46 Dose: Not Given Pantoprazole Sodium (Protonix Ec Tab) 40 mg PO ACB [facility] Last Admin: 12/02/18 08:28 Dose: 40 mg Pregabalin (Lyrica) 50 mg PO BID [facility] Last Admin: 12/02/18 09:43 Dose: 50 mg Tizanidine HCl (Zanaflex) 4 mg PO TID [facility] Last Admin: 12/02/18 13:38 Dose: 4 mg - Labs Labs: 12/02/18 06:40 12/02/18 06:40 Attending/Attestation - Attestation I have personally seen and examined this patient.: Yes I have fully participated in the care of the patient.: Yes I have reviewed all pertinent clinical information, including history, physical exam and plan: Yes
[2018-12-02] MEDS: Sodium Chloride 0.9% 1,000 ML IV SCH (17:36)
[2018-12-02 21:14] VITALS: BP 113/66; PULSE 93; RESP 20; TEMP 98.2; O2SAT 99
--- NOTE | 2018-12-03 06:46 | CP.PCM.PN ---
Subjective - Date & Time of Evaluation Date of Evaluation: 12/03/18 Time of Evaluation: 06:20 - Subjective Subjective: Lying in bed, Awake, alert, no distress Reason for consultation and follow up: Cardiac evaluation, ruled out endocarditis, admitted for fever and chills, current heroin drug use Seen and examined by me and Dr. Abel Objective - Vital Signs/Intake and Output Vital Signs (last 24 hours): Temp Pulse Resp BP Pulse Ox 98.2 F 93 H 20 113/66 99 12/02/18 21:14 12/02/18 21:14 12/02/18 21:14 12/02/18 21:14 12/02/18 21:14 Intake and Output: 12/02/18 12/03/18 18:59 06:59 Intake Total 180 Balance 180 - Medications Medications: Current Medications Acetaminophen (Tylenol 325mg Tab) 650 mg PO Q4H PRN PRN Reason: Fever >100.4 F Last Admin: 12/02/18 20:55 Dose: 650 mg Clonazepam (Klonopin) 0.5 mg PO TID [facility]; Protocol Last Admin: 12/02/18 17:34 Dose: 0.5 mg Home Med (Home Med) 1 unit SL BID [facility] Last Admin: 12/02/18 17:34 Dose: 1 unit Sodium Chloride (Sodium Chloride 0.9%) 1,000 mls @ 150 mls/hr IV .Q6H40M [facility] Last Admin: 12/02/18 17:36 Dose: 150 mls/hr Vancomycin HCl (Vancomycin 1gm) 1 gm in 250 mls @ 167 mls/hr IVPB Q12H [facility]; Protocol Stop: 12/08/18 20:31 Last Admin: 12/02/18 21:00 Dose: 167 mls/hr Nafcillin Sodium 2 gm/ (Dextrose) 100 mls @ 100 mls/hr IVPB Q6 [facility]; Protocol Stop: 12/10/18 21:01 Last Admin: 12/03/18 05:23 Dose: 100 mls/hr Ibuprofen (Motrin Tab) 400 mg PO Q6H PRN PRN Reason: Pain, Mild (1-3) Mirtazapine (Remeron) 15 mg PO HS [facility] Last Admin: 12/02/18 20:59 Dose: 15 mg Nicotine (Nicoderm Cq) 1 patch TD DAILY [facility] Last Admin: 12/02/18 09:46 Dose: Not Given Pantoprazole Sodium (Protonix Ec Tab) 40 mg PO ACB [facility] Last Admin: 12/02/18 08:28 Dose: 40 mg Pregabalin (Lyrica) 50 mg PO BID [facility] Last Admin: 12/02/18 17:34 Dose: 50 mg Tizanidine HCl (Zanaflex) 4 mg PO TID [facility] Last Admin: 12/02/18 17:34 Dose: 4 mg - Labs Labs: 12/02/18 06:40 12/02/18 06:40 - Constitutional Appears: Non-toxic, No Acute Distress - Head Exam Head Exam: NORMAL INSPECTION - Eye Exam Eye Exam: Normal appearance Pupil Exam: NORMAL ACCOMODATION - ENT Exam ENT Exam: Mucous Membranes Moist, Normal Exam - Respiratory Exam Respiratory Exam: Decreased Breath Sounds, Clear to Ausculation Bilateral, NO RMAL BREATHING PATTERN - Cardiovascular Exam Cardiovascular Exam: +S1, +S2 - GI/Abdominal Exam GI & Abdominal Exam: Soft, Normal Bowel Sounds - Extremities Exam Extremities Exam: Full ROM, Normal Capillary Refill - Neurological Exam Neurological Exam: Alert, Awake, Oriented x3 - Psychiatric Exam Psychiatric exam: Normal Affect, Normal Mood - Skin Skin Exam: Dry, Normal Color, Warm Assessment and Plan - Assessment and Plan (Free Text) Assessment: A 23 year old male who came in to the ER due to fever, chills and sore throat for the past few days. He was just recently seen at [facility] for similar symptoms. He claimed to take heroin at least 10 bags per day. Last drug use was a day prior to admission and then felt fever and chills. Seen by PMD and sent to ER for positive blood cultures. Denies any other medical history. He smokes 1 pack per day for the past few years. He does not work and does not go to school. Consult was called to rule out endocarditis. ID on consult. Continue IV antibiotics.culture Echo done yesterday and showed LVEF 57%, mild enlargement of the left atrium, mild posteriormitral valve prolapse, moderate mitral regurgiation, RVSP 29 mmHg,no pericardial effusion, No vegetation noted. Ruled out endocarditis. No distress. Blood culture positive for gram positive cocci, Repeat blood culture done awaiting results. Continue IV antibiotics as ordered. Afebrile. Plan: No distress,feels okay Cardiac status stable ID on consult Continue IV antibiotics as ordered Repeat blood culture done yesterday awaiting results Blood culture on admission showed gram positive cocci Continue current treatment Continue current medications Watch out for withdrawal symptoms Lifestyle modification Complete cessation of heroin use and smoking Will follow up Plan and treatment discussed with Dr. Abel
[2018-12-03] MEDS: Pantoprazole 40 mg EC Tab PO SCH (08:15)
[2018-12-03] MEDS: Vancomycin 1gm in NS 250ml 1 GM/250 ML BAG IVPB SCH (08:15)
--- NOTE | 2018-12-03 08:51 | PN ---
DATE: 12/02/2018 SUBJECTIVE: The patient is seen today. Feels is okay. Comfortable. Still complaining of bone pain. The patient does have a history of heroin IV use and benzodiazepine abuse. He was admitted for positive blood culture, fever of 102, and possible endocarditis. He is stable. Other than bone pains, no complaints. It is mainly in his feet, his bones in general. He also has problem sleeping, insomnia, hence he is a little bit anxious. PHYSICAL EXAMINATION: VITAL SIGNS: Temperature 98.7, heart rate 52, blood pressure is 109/61, respirations 19, saturation 98%. HEAD AND NECK: Normal. No JVD. No thyromegaly. CHEST: Clear bilaterally. CARDIAC: First sound and second sound normal. ABDOMEN: Soft and nontender. EXTREMITIES: No edema. NEUROLOGIC: Normal. LABORATORY DATA: The patient had repeat blood cultures, came back gram positive in clusters. He also had repeat white count 6.9, hemoglobin 11.7, hematocrit 36.3, platelets 176. His sodium is 145, potassium 3.6, chloride 109, bicarb 28, BUN 9, creatinine 0.7. Liver function test is normal. The patient had an echocardiogram, it is not read. Apparently does not show significant lesion transesophageal echo to the valves, tricuspid and other valves. We will discuss further with the engraver block. IMPRESSION AND PLAN: 1. Gram positive bacteremia clusters, currently on intravenous nafcillin. We will discuss with Infectious Disease and transesophageal echocardiogram is recommended. We will discuss with the engraver block. Continue current therapy. 2. History of heroin abuse. The patient is addicted to intravenous heroin. We will give him Subutex for now and see how he do. Continue Klonopin p.r.n. and continue Lyrica. We will add Lyrica to him. Continue Remeron at bedtime. Psychiatric evaluation has been ordered. We will see further recommendations. The patient does have also concurrent anxiety and we will continue current therapy for now. I did discuss with the patient in detail adherence of treatment. Edson Weiss MD [facility] # [id number]
[2018-12-03] MEDS ORDERED: Potassium Chloride 20 mEq ER Tab PO ONE (09:50)
[2018-12-03] MEDS: SUBUTEX 8 MG SL SCH (10:05)
--- NOTE | 2018-12-03 11:52 | PN ---
DATE: 12/03/2018 SUBJECTIVE: The patient is stable. No chest pain. No short of breath. Subutex p.o. today, . He has no fever. PHYSICAL EXAMINATION: On 12/02/2018; VITAL SIGNS: He has temperature 98, heart rate 93, blood pressure 115/66, respiration 20, and saturation 98%. HEAD AND NECK: Normal. No JVD. No thyromegaly. CHEST: Clear bilaterally. CARDIAC: First sound and second sound normal. No murmur, rub, or gallop. ABDOMEN: Soft and nontender. EXTREMITIES: No edema. NEUROLOGIC: Normal. IMPRESSION AND PLAN: 1. Positive bacteremia. We will rule out endocarditis. We will discuss with Cardiology. Continue nafcillin IV. The patient will need four weeks of IV antibiotics. 2. History of drug use disorder, heroin use disorder, benzodiazepine. We will decrease the medication gradually. He is on Subutex. We will decrease the Klonopin gradually. Continue current medications. He is getting Remeron, Lyrica and NicoDerm CQ, Klonopin p.r.n. 0.5, and Zanaflex 4 mg three times a day. Continue current medications. Follow up clinically. Edson Weiss MD
[2018-12-03] MEDS: Sodium Chloride 0.9% 1,000 ML IV SCH (13:21)
--- NOTE | 2018-12-03 15:30 | CP.PCM.PN ---
<Vaughn Briscoe - Last Filed: 12/03/18 16:43> Subjective - Date & Time of Evaluation Date of Evaluation: 12/03/18 Time of Evaluation: 09:05 - Subjective Subjective: Infectious disease progress note: Patient seen and examined at bedside. No acute events overnight. Denies any fever or chills. No other complaints. 12 point ROS performed and negative unless stated above. Objective - Vital Signs/Intake and Output Vital Signs (last 24 hours): Temp Pulse Resp BP Pulse Ox 98.2 F 93 H 20 113/66 99 12/02/18 21:14 12/02/18 21:14 12/02/18 21:14 12/02/18 21:14 12/02/18 21:14 Intake and Output: 12/03/18 12/03/18 06:59 18:59 Intake Total 620 Balance 620 - Medications Medications: Current Medications Acetaminophen (Tylenol 325mg Tab) 650 mg PO Q4H PRN PRN Reason: Fever >100.4 F Last Admin: 12/02/18 20:55 Dose: 650 mg Clonazepam (Klonopin) 0.5 mg PO TID [facility]; Protocol Last Admin: 12/03/18 13:20 Dose: 0.5 mg Home Med (Home Med) 1 unit SL BID [facility] Last Admin: 12/03/18 10:05 Dose: 1 unit Sodium Chloride (Sodium Chloride 0.9%) 1,000 mls @ 150 mls/hr IV .Q6H40M [facility] Last Admin: 12/03/18 13:21 Dose: 150 mls/hr Nafcillin Sodium 2 gm/ (Dextrose) 100 mls @ 100 mls/hr IVPB Q6 [facility]; Protocol Stop: 12/10/18 21:01 Last Admin: 12/03/18 13:21 Dose: 100 mls/hr Ibuprofen (Motrin Tab) 400 mg PO Q6H PRN PRN Reason: Pain, Mild (1-3) Mirtazapine (Remeron) 15 mg PO HS [facility] Last Admin: 12/02/18 20:59 Dose: 15 mg Nicotine (Nicoderm Cq) 1 patch TD DAILY [facility] Last Admin: 12/03/18 10:04 Dose: 1 patch Pantoprazole Sodium (Protonix Ec Tab) 40 mg PO ACB [facility] Last Admin: 05/17/19 08:15 Dose: 40 mg Pregabalin (Lyrica) 50 mg PO BID [facility] Last Admin: 12/03/18 10:05 Dose: 50 mg Tizanidine HCl (Zanaflex) 4 mg PO TID [facility] Last Admin: 12/03/18 13:20 Dose: 4 mg - Labs Labs: 12/02/18 06:40 12/02/18 06:40 - Constitutional Appears: No Acute Distress - Head Exam Head Exam: ATRAUMATIC, NORMOCEPHALIC - Eye Exam Eye Exam: EOMI - ENT Exam ENT Exam: Mucous Membranes Moist - Respiratory Exam Respiratory Exam: Clear to Ausculation Bilateral. absent: Wheezes - Cardiovascular Exam Cardiovascular Exam: REGULAR RHYTHM, RRR, +S1, +S2 - GI/Abdominal Exam GI & Abdominal Exam: Soft, Normal Bowel Sounds - Extremities Exam Extremities Exam: absent: Calf Tenderness, Pedal Edema - Neurological Exam Neurological Exam: Alert, Awake, Oriented x3 - Psychiatric Exam Psychiatric exam: Normal Mood - Skin Skin Exam: Dry, Warm Assessment and Plan - Assessment and Plan (Free Text) Assessment: Sepsis with bacteremia with staph aureus IV drug abuse with heroin Active smoker Continue with Nafcillin- d/pamela vanc Follow-up repeat blood cultures - repeat culture positive for coag neg staph - repeat cultures tomorrow Obtain echo - no vegatations indicative of endocarditis Follow-up cardiology recommendations consult Continue to monitor for any changes Case and plan was to be reviewed and discussed with Dr. Vickers <Lenny Vickers - Last Filed: 12/03/18 18:05> Objective - Vital Signs/Intake and Output Vital Signs (last 24 hours): Temp Pulse Resp BP Pulse Ox 98.2 F 93 H 20 113/66 99 12/02/18 21:14 12/02/18 21:14 12/02/18 21:14 12/02/18 21:14 12/02/18 21:14 Intake and Output: 12/03/18 12/03/18 06:59 18:59 Intake Total 620 Balance 620 - Labs Labs: 12/02/18 06:40 12/02/18 06:40 Attending/Attestation - Attestation I have personally seen and examined this patient.: Yes I have fully participated in the care of the patient.: Yes I have reviewed all pertinent clinical information, including history, physical exam and plan: Yes
== END 2018-12-03 13:45 | disposition left against medical advice (07) | DRG 720 ==
LOC: ED 15:31 → ERH 16:50 → 5RNO 20:04
PROVIDERS: ADMIT Internal Medicine; ATTEND Internal Medicine
DX: A41.01 Sepsis due to Methicillin susceptible Staphylococcus aureus (principal); F11.10 Opioid abuse, uncomplicated; G47.00 Insomnia, unspecified; F17.210 Nicotine dependence, cigarettes, uncomplicated; F41.9 Anxiety disorder, unspecified

== ENCOUNTER 2018-12-03 15:30 | Inpatient (IN) | payer MEDICAID, OTHER ==
[2018-12-03 15:30] VITALS: BMI 18.3
--- NOTE | 2018-12-03 17:00 | ED PDOC ---
Arrival/HPI - General Historian: Patient - History of Present Illness Narrative History of Present Illness (Text): 12/03/18 17:25 Patient is a 23 yo male with polysubstance use disorder (IV heroin, tobacco, benzos) who presents with bacteremia. Patient was admitted to the hospital for bacteremia receiving IV antibiotics for the past 3 days. Patient eloped from the hospital earlier today. He states that he felt like he did not need to be in the hospital anymore. He admits to using IV heroin today. He did not have the hep lock removed prior to elopement, but he denies using it for heroin administration. he says that he returned because the hospital called him and and his dad and told him that he could from his infection. Patient states that he will not elope again. He was informed of the AMA process if he wishes to leave prior to discharge in the future. Presently, patient is asymptomatic. <Jacklyn Meeks - Last Filed: 12/03/18 17:38> <Thai Stratton - Last Filed: 12/03/18 17:55> - General Chief Complaint: Abnormal Labs Time Seen by Provider: 12/03/18 16:05 Past Medical History - Infectious Disease Hx of Infectious Diseases: None - Cardiac Hx Cardiac Disorders: No - Pulmonary Hx Respiratory Disorders: No - Neurological Hx Neurological Disorder: No - HEENT Hx HEENT Disorder: No - Renal Hx Renal Disorder: No - Endocrine/Metabolic Hx Endocrine Disorders: No - Hematological/Oncological Hx Blood Disorders: No - Integumentary Hx Dermatological Disorder: No - Musculoskeletal/Rheumatological Hx Musculoskeletal Disorders: No Hx Falls: No - Gastrointestinal Hx Gastrointestinal Disorders: No - Genitourinary/Gynecological Hx Genitourinary Disorders: No - Psychiatric Hx Psychophysiologic Disorder: No Hx Substance Use: Yes - Anesthesia Hx Anesthesia: No <Jacklyn Meeks - Last Filed: 12/03/18 17:38> Family/Social History - Physician Review Nursing Documentation Reviewed: Yes Family/Social History: Unknown Family HX Smoking Status: Heavy Smoker > 10 Cigarettes Daily Hx Alcohol Use: No Hx Substance Use: Yes Substance used: heroin <Jacklyn Meeks - Last Filed: 12/03/18 17:38> Allergies/Home Meds <Jacklyn Meeks - Last Filed: 12/03/18 17:38> <Thai Stratton - Last Filed: 12/03/18 17:55> Allergies/Adverse Reactions: Allergies No Known Allergies Allergy (Verified 11/30/18 15:47) Home Medications: Home Meds Medication Instructions Recorded Confirmed No Known Home Med 11/30/18 11/30/18 Review of Systems - Review of Systems Constitutional: absent: Fatigue, Fevers, Night Sweats Eyes: Normal ENT: Normal Respiratory: absent: SOB, Cough Cardiovascular: absent: Chest Pain, Palpitations Gastrointestinal: absent: Abdominal Pain, Constipation, Diarrhea, Nausea, Vomiting Genitourinary Male: absent: Dysuria Musculoskeletal: absent: Arthralgias, Myalgias Skin: Skin Lesions (track juan on arms). absent: Rash, Pruritis, Abscess Neurological: absent: Headache, Dizziness Endocrine: absent: Diaphoresis Hemo/Lymphatic: absent: Adenopathy Psychiatric: Depression <Jacklyn Meeks - Last Filed: 12/03/18 17:38> Physical Exam Vital Signs Reviewed: Yes Temperature: Afebrile Blood Pressure: Normal Pulse: Regular Respiratory Rate: Normal Appearance: Positive for: Non-Toxic, Comfortable Pain Distress: None Mental Status: Positive for: Alert and Oriented X 3 - Systems Exam Head: Present: Atraumatic, Normocephalic Pupils: Present: PERRL Extroacular Muscles: Present: EOMI Conjunctiva: Present: Normal Mouth: Present: Moist Mucous Membranes Neck: Present: Normal Range of Motion Respiratory/Chest: Present: Clear to Auscultation, Good Air Exchange Cardiovascular: Present: Regular Rate and Rhythm, Normal S1, S2 Abdomen: No: Tenderness, Distention Upper Extremity: Present: Neurovascularly Intact, Other (b/l track juan, no abscesses, hep lock in L antecubital) Lower Extremity: Present: Normal Inspection Neurological: Present: GCS=15, CN II-XII Intact, Speech Normal Skin: Present: Warm, Dry, Normal Color Psychiatric: Present: Alert, Oriented x 3, Normal Insight, Normal Concentration <Jacklyn Meeks - Last Filed: 12/03/18 17:38> Medical Decision Making ED Course and Treatment: 12/03/18 17:[address] Weiss who accepts patient for readmission. He requests one dose of Nafcillin 2 g and UDS. - Lab Interpretations I have reviewed the lab results: Yes - Medication Orders Current Medication Orders: 12/03/18 17:34 Nafcillin 2g IV <Jacklyn Meeks - Last Filed: 12/03/18 17:38> ED Course and Treatment: 12/03/18 17:55 Patient Seen with Resident: In agreement with resident note which contains more details about the patient. Patient seen and evaluated with resident. Came up with plan and treatment together. - Medication Orders Current Medication Orders: Nafcillin Sodium 2 gm/ Sodium (Chloride) 100 mls @ 100 mls/hr IVPB ONCE ONE; Protocol Stop: 12/03/18 18:21 <Thai Stratton - Last Filed: 12/03/18 17:55> - PA / MANAGER SOURCING / Resident Statement / has reviewed & agrees with the documentation as recorded. / has examined the patient and agrees with the treatment plan. <Thai Stratton - Last Filed: 12/03/18 17:55> Disposition/Present on Arrival - Present on Arrival Any Indicators Present on Arrival: No History of DVT/PE: No History of Uncontrolled Diabetes: No Urinary Catheter: No History of Decub. Ulcer: No History Surgical Site Infection Following: None - Disposition Have Diagnosis and Disposition been Completed?: Yes Disposition Time: 17:35 Patient Plan: Admission <Jacklyn Meeks - Last Filed: 12/03/18 17:38> <Thai Stratton - Last Filed: 12/03/18 17:55> - Disposition Diagnosis: Bacteremia Disposition: HOSPITALIZED Patient Problems: Current Active Problems Problem Status Onset Bacteremia Acute Condition: GUARDED Referrals: PCP,NO [Primary Care Provider] - Follow up with primary Forms: pbsi (Romansh)
[2018-12-03] MEDS ORDERED: Nafcillin 2 GM in Sodium Chloride 0.9% 100 ML IVPB ONE (17:22)
[2018-12-03 19:33] LABS: BARBITURATES, UR NEGATIVE (NEGATIVE); BENZODIAZEPINES, UR NEGATIVE (NEGATIVE); OPIATES, UR POSITIVE (NEGATIVE); PHENCYCLIDINE, UR NEGATIVE (NEGATIVE)
[2018-12-03] MEDS ORDERED: Sodium Chloride 0.9% 1,000 ML IV ONE (20:54)
[2018-12-04] MEDS ORDERED: Pneumococcal 23-Valent Vaccine IM ONE (00:40)
[2018-12-04] MEDS ORDERED: Sodium Chloride 0.9% 1,000 ML IV SCH (05:30)
--- NOTE | 2018-12-04 09:43 | CON ---
DATE OF CONSULTATION: 12/04/2018 The patient is seen in 565. The patient was in the hospital for a chief complaint of weakness. HISTORY OF PRESENT ILLNESS: This is a 23-year-old Citizen Of [place] male with a history of intravenous drug abuse, who was just recently admitted, found to have sensitive staph aureus bacteremia, possibly endocarditis. The patient walked off the floor by now and used drugs and came back now, readmitted. REVIEW OF SYSTEMS: Reviewed. PAST MEDICAL HISTORY: Noncontributory except the recent hospitalization for bacteremia. The patient does have intravenous heroin. PAST SURGICAL HISTORY: Noncontributory, and the patient was having fevers and chills. ALLERGIES: THE PATIENT HAS NO KNOWN ALLERGIES. MEDICATIONS: He takes no medications at home. He uses intravenous heroin. PHYSICAL EXAMINATION: VITAL SIGNS: Temperature is 97, he did have temperature of 102 and a heart rate of 94, respiratory rate of 20. HEENT: Examination of HEENT is unremarkable. NECK: Supple. LUNGS: Have decreased breath sounds. HEART: Normal S1, S2. ABDOMEN: Soft, nontender. LABORATORY DATA: Laboratory examination reveals the patient has a sensitive staph aureus bacteremia. Repeat blood cultures are also positive. The patient had an echo, which was noncontributory. ASSESSMENT AND PLAN: This is a 23-year-old male with sepsis with sensitive staph aureus bacteremia, probable endocarditis. We will treat the patient with nafcillin, and we will need a EUFEMIA. He had an HIV test, which was negative, and we will make further recommendations upon availability of further results. We will repeat blood cultures. Lenny Vickers MD
[2018-12-04] MEDS: Pantoprazole 40 mg EC Tab PO SCH (10:56)
[2018-12-04] MEDS: oxyCODONE 10 mg Immediate Release Tab PO PRN ×2 (11:03→18:48)
[2018-12-05] MEDS: oxyCODONE 10 mg Immediate Release Tab PO PRN ×4 (00:08→21:03)
--- NOTE | 2018-12-05 07:17 | HP ---
DATE OF EXAM: 12/04/2018 REASON FOR CONSULTATION: The patient came for endocarditis treatment. HISTORY OF PRESENT ILLNESS: This is a 23-year-old male with history of drug use, heroin IV use, who contracted infection, bacteremia Gram-positive clusters, was on nafcillin in the hospital. When he left the hospital, he came back; after he gave himself heroin injections. The patient was advised go through the ER to be admitted again to continue therapy for endocarditis. I discussed with the family and the patient the risk of endocarditis and high mortality rate associated with that and also kidney failure and embolic phenomena. The patient advised to stay in the hospital, continue antibiotics and to go ahead and communicate about his problems. I spoke with the father, the , the mother and the patient about risks with endocarditis and heroin use and the risk of . The patient denied any fever or any chills. The patient had urine drug screen, which is positive for opiates when he came in. No fever, no chills and no other complaints. PAST MEDICAL HISTORY: As I mentioned, history of drug use, heroin. He also in the past used Xanax, used Klonopin, and has been using IV heroin for the last month or two, before that he was snoring it. Also no history of any psychiatric disorder. FAMILY HISTORY: Noncontributory. SOCIAL HISTORY: He smokes only marijuana on and off, but no tobacco. No nausea, no vomiting and no alcohol. No other drugs. ALLERGIES: NO KNOWN DRUG ALLERGIES. REVIEW OF SYSTEMS: As in the history of present illness. PHYSICAL EXAMINATION VITAL SIGNS: Temperature of 98.2, heart rate of 97, blood pressure of 113/75, respirations of 18 and saturation of 100%. HEAD AND NECK: Normal. No JVD. No thyromegaly. CHEST: Clear bilaterally. CARDIAC: First sound and second sound normal. No murmur, rub or gallop. ABDOMEN: Soft and nontender. EXTREMITIES: No edema. NEUROLOGIC: Normal. LABORATORY DATA: Urine drug screen was positive for marijuana. IMPRESSION AND PLAN: 1. The patient has Gram-positive bacteremia in clusters, possible endocarditis. We will continue IV nafcillin, Infectious Disease consultation and Cardiology consultation. 2. History of heroin use disorder. We will also give the patient oxycodone for 2 to 3 days before switch him to Subutex and possibly we may give him injections after a few days of Suboxone. I discussed the plan with the patient and the risk associated. The patient seems tolerating Suboxone well before, never had any problems with it and seems to be doing okay. Continue current therapy. Edson Weiss MD
[2018-12-05] MEDS: Sodium Chloride 0.9% 1,000 ML IV SCH (09:06)
[2018-12-05] MEDS: Pantoprazole 40 mg EC Tab PO SCH (10:00)
[2018-12-05 10:44] LABS: ALB/GLOB RATIO 1.3 (1.1-1.8); ALBUMIN 3.6 g/dL (3.0-4.8); BILIRUBIN,DIRECT 0.2 mg/dL (0.0-0.4)
--- NOTE | 2018-12-05 14:25 | PN ---
DATE: 12/05/2018 SUBJECTIVE: The patient is seen earlier today. No acute distress. PHYSICAL EXAMINATION: VITAL SIGNS: Temperature of 98, blood pressure is 100/60, respiratory rate of 18. HEENT: Unremarkable. NECK: Supple. LUNGS: Decreased breath sounds. HEART: Normal S1 and S2. ABDOMEN: Negative. LABORATORY DATA: Review of cultures revealed sensitive Staph from 11/30/2018. Repeat blood culture is still positive for gram-positive cocci, however, cultures from yesterday are negative. Review of orders revealed the patient to be on nafcillin 2 g every 6 hours. ASSESSMENT AND PLAN: This is a 23-year-old male who is an intravenous drug abuser who has, 1. Sepsis with sensitive Staph aureus bacteremia, probable endocarditis. Today is day #2 of nafcillin with complete 28 days, would order CBC, SMA-18, sed rate, and C-reactive protein once a week. Lenny Vickers MD
[2018-12-06] MEDS: oxyCODONE 10 mg Immediate Release Tab PO PRN ×3 (05:39→17:39)
[2018-12-06] MEDS: Pantoprazole 40 mg EC Tab PO SCH (06:43)
--- NOTE | 2018-12-06 12:33 | CP.PCM.PN ---
<Vaughn Briscoe - Last Filed: 12/06/18 16:02> Subjective - Date & Time of Evaluation Date of Evaluation: 12/06/18 Time of Evaluation: 10:05 - Subjective Subjective: Infectious disease progress note: Patient seen and examined at bedside. No acute events overnight. Denies any fever, or chills. No other complaints. 12 point ROS performed and negative unless stated above. Objective - Vital Signs/Intake and Output Vital Signs (last 24 hours): Temp Pulse Resp BP Pulse Ox 97.8 F 64 18 105/65 99 12/06/18 06:00 12/06/18 06:00 12/06/18 06:00 12/06/18 06:00 12/06/18 06:00 Intake and Output: 12/06/18 12/06/18 06:59 18:59 Intake Total 620 Balance 620 - Medications Medications: Current Medications Acetaminophen (Tylenol 325mg Tab) 650 mg PO Q4H PRN PRN Reason: Pain, Mild (1-3) Clonazepam (Klonopin) 0.5 mg PO TID [facility]; Protocol Last Admin: 12/06/18 09:18 Dose: 0.5 mg Nafcillin Sodium 2 gm/ (Dextrose) 100 mls @ 100 mls/hr IVPB Q6 [facility]; Protocol Last Admin: 12/06/18 11:56 Dose: 100 mls/hr Sodium Chloride (Sodium Chloride 0.9%) 1,000 mls @ 50 mls/hr IV .Q20H [facility] Last Admin: 12/05/18 09:06 Dose: 50 mls/hr Ibuprofen (Motrin Tab) 400 mg PO Q6H PRN PRN Reason: Pain, moderate (4-7) Mirtazapine (Remeron) 15 mg PO HS [facility] Last Admin: 12/05/18 21:03 Dose: 15 mg Oxycodone HCl (Oxycodone Immediate Release Tab) 10 mg PO Q6H PRN PRN Reason: Pain, moderate (4-7) Last Admin: 12/06/18 10:49 Dose: 10 mg Pantoprazole Sodium (Protonix Ec Tab) 40 mg PO ACB [facility] Last Admin: 12/06/18 06:43 Dose: 40 mg Pregabalin (Lyrica) 50 mg PO BID [facility] Last Admin: 12/06/18 09:18 Dose: 50 mg Tizanidine HCl (Zanaflex) 4 mg PO TID [facility] Last Admin: 12/06/18 09:18 Dose: 4 mg - Constitutional Appears: No Acute Distress - Head Exam Head Exam: ATRAUMATIC, NORMOCEPHALIC - Eye Exam Eye Exam: EOMI - ENT Exam ENT Exam: Mucous Membranes Moist - Respiratory Exam Respiratory Exam: Clear to Ausculation Bilateral. absent: Wheezes - Cardiovascular Exam Cardiovascular Exam: REGULAR RHYTHM, +S1, +S2. absent: Murmur - GI/Abdominal Exam GI & Abdominal Exam: Soft. absent: Tenderness - Neurological Exam Neurological Exam: Alert, Awake, Oriented x3 - Skin Skin Exam: Dry, Warm Assessment and Plan - Assessment and Plan (Free Text) Assessment: Sepsis with bacteremia with staph aureus - probable endocarditis IV drug abuse with heroin Active smoker Continue with Nafcillin day 3 of 28 Follow-up repeat blood cultures Echo - no vegatations indicative of endocarditis Follow-up cardiology recommendations - regarding EUFEMIA Continue to monitor for any changes Case and plan was to be reviewed and discussed with Dr. Vickers <Lenny Vickers - Last Filed: 12/06/18 16:03> Objective - Vital Signs/Intake and Output Vital Signs (last 24 hours): Temp Pulse Resp BP Pulse Ox 97.8 F 64 18 105/65 99 12/06/18 06:00 12/06/18 06:00 12/06/18 06:00 12/06/18 06:00 12/06/18 06:00 Intake and Output: 12/06/18 12/06/18 06:59 18:59 Intake Total 620 Balance 620 - Medications Medications: Current Medications Acetaminophen (Tylenol 325mg Tab) 650 mg PO Q4H PRN PRN Reason: Pain, Mild (1-3) Clonazepam (Klonopin) 0.5 mg PO TID [facility]; Protocol Last Admin: 12/06/18 13:39 Dose: 0.5 mg Nafcillin Sodium 2 gm/ (Dextrose) 100 mls @ 100 mls/hr IVPB Q6 [facility]; Protocol Last Admin: 12/06/18 11:56 Dose: 100 mls/hr Sodium Chloride (Sodium Chloride 0.9%) 1,000 mls @ 50 mls/hr IV .Q20H [facility] Last Admin: 05/19/19 09:06 Dose: 50 mls/hr Ibuprofen (Motrin Tab) 400 mg PO Q6H PRN PRN Reason: Pain, moderate (4-7) Mirtazapine (Remeron) 15 mg PO HS [facility] Last Admin: 12/05/18 21:03 Dose: 15 mg Oxycodone HCl (Oxycodone Immediate Release Tab) 10 mg PO Q6H PRN PRN Reason: Pain, moderate (4-7) Last Admin: 12/06/18 10:49 Dose: 10 mg Pantoprazole Sodium (Protonix Ec Tab) 40 mg PO ACB [facility] Last Admin: 12/06/18 06:43 Dose: 40 mg Pregabalin (Lyrica) 50 mg PO BID [facility] Last Admin: 12/06/18 09:18 Dose: 50 mg Tizanidine HCl (Zanaflex) 4 mg PO TID [facility] Last Admin: 12/06/18 13:39 Dose: 4 mg Attending/Attestation - Attestation I have personally seen and examined this patient.: Yes I have fully participated in the care of the patient.: Yes I have reviewed all pertinent clinical information, including history, physical exam and plan: Yes
[2018-12-06 16:40] LABS: BASO # 0.01 K/mm3 (0.0-2.0); BASO % 0.1 % (0.0-3.0); EOS # 0.3 (0.0-0.7); EOS % 2.9 % (1.5-5.0); HEMOGLOBIN 11.9 g/dL (14.0-18.0); LYMPH # 2.8 (1.2-3.4); MEAN CELL VOLUME 85.3 fl (80.0-105.0); MEAN CORPUSCULAR HEMOGLOBIN 26.9 pg (25.0-35.0); MEAN CORPUSCULAR HGB CONC 31.6 g/dl (31.0-37.0); MEAN PLATELET VOLUME 9.2 fl (7.0-11.0); MONO # 0.6 (0.1-0.6); MONO % 6.6 % (1.0-6.0); RBC 4.42 10^6/uL (3.5-6.1); RED CELL DISTRIBUTION WIDTH 14.4 % (11.5-14.5); WHITE BLOOD COUNT 8.5 10^3/uL (4.5-11.0)
[2018-12-06 16:53] LABS: ALB/GLOB RATIO 1.3 (1.1-1.8); ALBUMIN 4.2 g/dL (3.0-4.8); ALT/SGPT 59 U/L (7-56); AST/SGOT 45 U/L (17-59); BLOOD UREA NITROGEN 9 mg/dL (7-21); CALCIUM 9.4 mg/dL (8.4-10.5); GFR NON-AFRICAN AMERICAN > 60
--- NOTE | 2018-12-06 20:12 | PN ---
DATE: 12/06/2018 REASON FOR DICTATION: The patient was scheduled for EUFEMIA tomorrow, but because of the technical reason nobody is available to clean the probe, so it is postponed and put for morning, so we will cancel the n.p.o. for tomorrow and reschedule n.p.o. after Thursday night. So we will reschedule the patient for EUFEMIA on and we will cancel the n.p.o. for tomorrow and reschedule for n.p.o after Thursday night. Yamilka Abel MD
--- NOTE | 2018-12-06 22:33 | CON ---
DATE: 12/06/2018 LOCATION: The patient is in room 565, bed 1. REASON FOR CONSULTATION: Rule out endocarditis and history of heroin intravenous use. HISTORY OF PRESENT ILLNESS: A 23-year-old male, who was admitted to the hospital recently with using heroin IV and there was found to have infection with bacteremia with Staphylococcus aureus. The patient was getting antibiotic, but he left the hospital and now he is back for treatment for possible endocarditis. The patient denies any chest pain, shortness of breath, or palpitation. The patient on this admission, the urine is positive for opiates. The patient is lying flat in bed without any cardiac symptoms. PAST MEDICAL HISTORY: Positive for drug use, heroin. In the past, also had used Xanax and Klonopin. Also has history of psychiatric disorders. FAMILY HISTORY: Not significant. PERSONAL HISTORY: Smokes marijuana on and off. Denies drinking alcohol, but takes heroin IV. ALLERGIES: NO KNOWN ALLERGIES. HOME MEDICATIONS: No known medications at home except heroin and for the opiates. His urine is positive for opiates. REVIEW OF SYSTEMS: All the systems reviewed; positives mentioned in the history. PHYSICAL EXAMINATION: VITAL SIGNS: The patient's blood pressure 105/65, respirations 18, pulse 64, and temperature 97.8. HEENT: Head is normocephalic. Eyes; pupils normal. Conjunctiva normal. Nose and throat normal. NECK: JVP low. Carotids equal. THORAX: AP diameter normal. LUNGS: Clear. CARDIOVASCULAR: S1 and S2. ABDOMEN: Soft. No tenderness. No organomegaly. Bowel sounds normal. EXTREMITIES: No clubbing. No cyanosis. LABORATORY DATA: WBC 6.9, hemoglobin 11.7, hematocrit 36.3, and platelets 176. Sodium 135, potassium 3.6, BUN 9, and creatinine 0.7. Phosphorus, magnesium, and total bilirubin normal. Blood culture positive for Staphylococcus aureus. Chest x-ray on 11/30/2018 showed no active disease. EKG on 11/30/2018 showed normal sinus rhythm with sinus arrhythmia; normal EKG. DIAGNOSES: Intravenous heroin use, rule out endocarditis, Staphylococcus aureus culture is positive, and drug abuse. PLAN: The patient is getting Lyrica 50 mg b.i.d., nafcillin 2 g IV every 6 hours, Remeron 15 mg p.o. at bedtime, IV fluid normal saline 50 mL an hour, and Zanaflex 4 mg p.o. t.i.d. We will continue this therapy, and we will arrange a EUFEMIA for evaluation for endocarditis. We will follow with you. Yamilka Borges MD
[2018-12-07] MEDS: Sodium Chloride 0.9% 1,000 ML IV SCH (05:24)
[2018-12-07] MEDS: Pantoprazole 40 mg EC Tab PO SCH (06:29)
--- NOTE | 2018-12-07 07:45 | CP.PCM.PN ---
Subjective - Date & Time of Evaluation Date of Evaluation: 12/07/18 Time of Evaluation: 06:30 - Subjective Subjective: Awake, alert, denies fever Reason for consultation and follow up:Cardiac evaluation for endocarditis, current heroine abuse Seen and examined by me and Dr. Abel Objective - Vital Signs/Intake and Output Vital Signs (last 24 hours): Temp Pulse Resp BP Pulse Ox 97.7 F 88 16 107/68 100 12/06/18 22:11 12/06/18 22:11 12/06/18 22:11 12/06/18 22:11 12/06/18 22:11 Intake and Output: 12/07/18 12/07/18 06:59 18:59 Intake Total 540 Balance 540 - Medications Medications: Current Medications Acetaminophen (Tylenol 325mg Tab) 650 mg PO Q4H PRN PRN Reason: Pain, Mild (1-3) Clonazepam (Klonopin) 0.5 mg PO TID [facility]; Protocol Last Admin: 12/06/18 17:39 Dose: 0.5 mg Nafcillin Sodium 2 gm/ (Dextrose) 100 mls @ 100 mls/hr IVPB Q6 [facility]; Protocol Last Admin: 12/07/18 05:22 Dose: 100 mls/hr Sodium Chloride (Sodium Chloride 0.9%) 1,000 mls @ 50 mls/hr IV .Q20H [facility] Last Admin: 12/07/18 05:24 Dose: 50 mls/hr Ibuprofen (Motrin Tab) 400 mg PO Q6H PRN PRN Reason: Pain, moderate (4-7) Mirtazapine (Remeron) 15 mg PO HS [facility] Last Admin: 12/06/18 21:22 Dose: 15 mg Oxycodone HCl (Oxycodone Immediate Release Tab) 10 mg PO Q6H PRN PRN Reason: Pain, moderate (4-7) Last Admin: 12/06/18 17:39 Dose: 10 mg Pantoprazole Sodium (Protonix Ec Tab) 40 mg PO ACB [facility] Last Admin: 12/07/18 06:29 Dose: 40 mg Pregabalin (Lyrica) 50 mg PO BID [facility] Last Admin: 12/06/18 17:16 Dose: Not Given Tizanidine HCl (Zanaflex) 4 mg PO TID [facility] Last Admin: 12/06/18 17:39 Dose: 4 mg - Labs Labs: 12/06/18 16:35 12/06/18 16:35 - Constitutional Appears: Non-toxic, No Acute Distress - Head Exam Head Exam: NORMAL INSPECTION, NORMOCEPHALIC - Eye Exam Eye Exam: Normal appearance Pupil Exam: NORMAL ACCOMODATION - ENT Exam ENT Exam: Mucous Membranes Moist, Normal Exam - Respiratory Exam Respiratory Exam: Decreased Breath Sounds, Clear to Ausculation Bilateral, NORMAL BREATHING PATTERN - Cardiovascular Exam Cardiovascular Exam: +S1, +S2 - GI/Abdominal Exam GI & Abdominal Exam: Soft, Normal Bowel Sounds - Extremities Exam Extremities Exam: Full ROM - Neurological Exam Neurological Exam: Alert, Awake, Oriented x3 - Psychiatric Exam Psychiatric exam: Normal Affect, Normal Mood - Skin Skin Exam: Dry, Normal Color, Warm Assessment and Plan - Assessment and Plan (Free Text) Assessment: A 23 year old who came in to the ER due to becteremia. Patient was admitted last 11/30/18 due to fever and chills. Work up showed positive blood cultures,bact eremia (staphylococcus aureaus). He was on IV antibiotics and on 12/06/18 he eloped and came back to [facility]. He admits to using heroin prior to coming back to ER. Denies any other medical history. He smokes 1 pack per day for the past few years. He does not work and does not go to school. Consult was called to rule out endocarditis. Echo done on 12/01/18 and showed LVEF 57%, mild enlargement of the left atrium, mild posteriormitral valve prolapse, moderate mitral regurgiation, RVSP 29 mmHg,no pericardial effusion, no vegetation noted. However, ID recommending EUFEMIA to rule out vegetations. Will schedule EUFEMIA on . Cardiac status stable. No fever. Plan: Scheduled for EUFEMIA on No distress Cardiac status stable ID on consult Continue IV antibiotics as ordered Continue current treatment Continue current medications Watch out for withdrawal symptoms Lifestyle modification Complete cessation of heroin use and smoking Will follow up Plan and treatment discussed with Dr. Abel
[2018-12-07 10:09] LABS: BASO # 0.02 K/mm3 (0.0-2.0); BASO % 0.2 % (0.0-3.0); EOS # 0.3 (0.0-0.7); EOS % 3.1 % (1.5-5.0); HEMOGLOBIN 12.2 g/dL (14.0-18.0); LYMPH # 2.4 (1.2-3.4); LYMPH % 27.8 % (22.0-35.0); MEAN CELL VOLUME 84.6 fl (80.0-105.0); MEAN CORPUSCULAR HEMOGLOBIN 27.2 pg (25.0-35.0); MEAN CORPUSCULAR HGB CONC 32.1 g/dl (31.0-37.0); MEAN PLATELET VOLUME 9.4 fl (7.0-11.0); MONO # 0.6 (0.1-0.6); MONO % 6.8 % (1.0-6.0); RBC 4.49 10^6/uL (3.5-6.1); RED CELL DISTRIBUTION WIDTH 14.5 % (11.5-14.5); WHITE BLOOD COUNT 8.8 10^3/uL (4.5-11.0)
[2018-12-07] MEDS: oxyCODONE 10 mg Immediate Release Tab PO PRN ×2 (10:10→21:04)
[2018-12-07 10:18] LABS: ALB/GLOB RATIO 1.4 (1.1-1.8); ALBUMIN 4.4 g/dL (3.0-4.8); ALT/SGPT 72 U/L (7-56); AST/SGOT 63 U/L (17-59); BLOOD UREA NITROGEN 7 mg/dL (7-21); CALCIUM 9.5 mg/dL (8.4-10.5); GFR NON-AFRICAN AMERICAN > 60
--- NOTE | 2018-12-07 10:37 | CP.PCM.PN ---
<Vaughn Briscoe - Last Filed: 12/07/18 14:37> Subjective - Date & Time of Evaluation Date of Evaluation: 12/07/18 Time of Evaluation: 09:25 - Subjective Subjective: Infectious disease progress note: Patient seen and examined at bedside. No acute events overnight. No fevers. Doing well otherwise. 12 point ROS performed and negative unless stated above. Objective - Vital Signs/Intake and Output Vital Signs (last 24 hours): Temp Pulse Resp BP Pulse Ox 97.6 F 59 L 18 100/56 L 95 12/07/18 06:00 12/07/18 06:00 12/07/18 06:00 12/07/18 06:00 12/07/18 06:00 Intake and Output: 12/07/18 12/07/18 06:59 18:59 Intake Total 540 Balance 540 - Medications Medications: Current Medications Acetaminophen (Tylenol 325mg Tab) 650 mg PO Q4H PRN PRN Reason: Pain, Mild (1-3) Clonazepam (Klonopin) 0.5 mg PO TID [facility]; Protocol Last Admin: 12/07/18 10:06 Dose: 0.5 mg Nafcillin Sodium 2 gm/ (Dextrose) 100 mls @ 100 mls/hr IVPB Q6 [facility]; Protocol Last Admin: 12/07/18 05:22 Dose: 100 mls/hr Sodium Chloride (Sodium Chloride 0.9%) 1,000 mls @ 50 mls/hr IV .Q20H [facility] Last Admin: 12/07/18 05:24 Dose: 50 mls/hr Ibuprofen (Motrin Tab) 400 mg PO Q6H PRN PRN Reason: Pain, moderate (4-7) Mirtazapine (Remeron) 15 mg PO HS [facility] Last Admin: 12/06/18 21:22 Dose: 15 mg Oxycodone HCl (Oxycodone Immediate Release Tab) 10 mg PO Q6H PRN PRN Reason: Pain, moderate (4-7) Last Admin: 12/07/18 10:10 Dose: 10 mg Pantoprazole Sodium (Protonix Ec Tab) 40 mg PO ACB [facility] Last Admin: 12/07/18 06:29 Dose: 40 mg Pregabalin (Lyrica) 50 mg PO BID [facility] Last Admin: 12/06/18 17:16 Dose: Not Given Tizanidine HCl (Zanaflex) 4 mg PO TID [facility] Last Admin: 12/07/18 10:06 Dose: 4 mg - Labs Labs: 12/07/18 10:00 12/07/18 10:00 - Constitutional Appears: No Acute Distress - Head Exam Head Exam: ATRAUMATIC, NORMOCEPHALIC - Eye Exam Eye Exam: EOMI - ENT Exam ENT Exam: Mucous Membranes Moist - Respiratory Exam Respiratory Exam: Clear to Ausculation Bilateral. absent: Rales, Rhonchi, Wheezes - Cardiovascular Exam Cardiovascular Exam: REGULAR RHYTHM, +S1, +S2 - GI/Abdominal Exam GI & Abdominal Exam: Soft. absent: Tenderness - Extremities Exam Extremities Exam: absent: Calf Tenderness, Pedal Edema - Neurological Exam Neurological Exam: Alert, Awake, Oriented x3 - Psychiatric Exam Psychiatric exam: Normal Mood - Skin Skin Exam: Dry, Warm Assessment and Plan - Assessment and Plan (Free Text) Assessment: Sepsis with bacteremia with staph aureus - probable endocarditis IV drug abuse with heroin Active smoker Continue with Nafcillin day Follow-up repeat blood cultures Echo - no vegatations indicative of endocarditis Follow-up cardiology recommendations - Plan for EUFEMIA on Continue to monitor for any changes Case and plan was to be reviewed and discussed with Dr. Vickers <Lenny Vickers - Last Filed: 12/07/18 19:08> Objective - Vital Signs/Intake and Output Vital Signs (last 24 hours): Temp Pulse Resp BP Pulse Ox 97.6 F 59 L 18 100/56 L 95 12/07/18 06:00 12/07/18 06:00 12/07/18 06:00 12/07/18 06:00 12/07/18 06:00 - Medications Medications: Current Medications Acetaminophen (Tylenol 325mg Tab) 650 mg PO Q4H PRN PRN Reason: Pain, Mild (1-3) Clonazepam (Klonopin) 0.5 mg PO TID [facility]; Protocol Last Admin: 12/07/18 17:20 Dose: 0.5 mg Nafcillin Sodium 2 gm/ (Dextrose) 100 mls @ 100 mls/hr IVPB Q6 [facility]; Protocol Last Admin: 12/07/18 17:19 Dose: 100 mls/hr Sodium Chloride (Sodium Chloride 0.9%) 1,000 mls @ 50 mls/hr IV .Q20H [facility] Last Admin: 12/07/18 05:24 Dose: 50 mls/hr Ibuprofen (Motrin Tab) 400 mg PO Q6H PRN PRN Reason: Pain, moderate (4-7) Mirtazapine (Remeron) 15 mg PO HS [facility] Last Admin: 12/06/18 21:22 Dose: 15 mg Oxycodone HCl (Oxycodone Immediate Release Tab) 10 mg PO Q6H PRN PRN Reason: Pain, moderate (4-7) Last Admin: 12/07/18 10:10 Dose: 10 mg Pantoprazole Sodium (Protonix Ec Tab) 40 mg PO ACB [facility] Last Admin: 12/07/18 06:29 Dose: 40 mg Pregabalin (Lyrica) 50 mg PO BID [facility] Last Admin: 12/07/18 17:19 Dose: 50 mg Tizanidine HCl (Zanaflex) 4 mg PO TID [facility] Last Admin: 12/07/18 17:20 Dose: 4 mg - Labs Labs: 12/07/18 10:00 12/07/18 10:00 Attending/Attestation - Attestation I have personally seen and examined this patient.: Yes I have fully participated in the care of the patient.: Yes I have reviewed all pertinent clinical information, including history, physical exam and plan: Yes
--- NOTE | 2018-12-07 11:11 | PN ---
DATE: 12/07/2018 SUBJECTIVE: A 23-year-old male who was admitted for endocarditis. The patient seems stable, no complaint. Discussed risk of endocarditis including the , including embolic phenomena, including sepsis if he did not comply with medication or with duration of ferritin. I spoke to him, spoke to his father and previously to his mother. PHYSICAL EXAMINATION GENERAL: VITAL SIGNS: Temperature 97.8, heart rate is 96, blood pressure 116/76, respirations 18, sat 100% on room air. HEAD AND NECK: Normal. No JVD. No thyromegaly. CHEST: Clear bilateral. CARDIAC: First sound and second sound normal. No murmur, rub, or gallop. ABDOMEN: Soft and nontender. EXTREMITIES: No edema. NEUROLOGICAL: Normal. LABORATORY DATA: White count 8.5, hemoglobin 11.9, hematocrit 37.7, platelets is 229. He also had chemistry including liver function test which was normal. His BUN 9, creatinine 0.7, blood sugar 114. Sodium 145, potassium 4.9, chloride 104, bicarb 30. IMPRESSION AND PLAN: This is 23-year-old male came in with endocarditis, Staphylococcus aureus and cluster secondary to IV drug use and have to rule out endocarditis. We will get Cardiology consult, ID consult and will followup clinically. 1. Continue nafcillin. 2. Addiction problem, heroin substance use disorders, heroin addiction IV. We will continue day #2 or #3 of oxycodone for now. The patient may benefit from Subutex injections as long maintenance therapy for noncompliant patient. The patient has been on Subutex multiple times, but does not complaint. Tolerating it well and no side effects from it. Continue current therapy. 3. For his chronic anxiety, the patient is getting Klonopin three times. He is getting Remeron, tizanidine. We will continue to monitor the patient. Edson Weiss MD
[2018-12-08] MEDS: Sodium Chloride 0.9% 1,000 ML IV SCH (05:29)
--- NOTE | 2018-12-08 06:45 | CP.PCM.PN ---
Subjective - Date & Time of Evaluation Date of Evaluation: 12/08/18 Time of Evaluation: 06:20 - Subjective Subjective: Feels okay, awake, alert, denies fever Reason for consultation and follow up:Cardiac evaluation for endocarditis, current heroine abuse Seen and examined by me and Dr. Abel Objective - Vital Signs/Intake and Output Vital Signs (last 24 hours): Temp Pulse Resp BP Pulse Ox 97.6 F 59 L 18 100/56 L 95 12/07/18 06:00 12/07/18 06:00 12/07/18 06:00 12/07/18 06:00 12/07/18 06:00 - Medications Medications: Current Medications Acetaminophen (Tylenol 325mg Tab) 650 mg PO Q4H PRN PRN Reason: Pain, Mild (1-3) Clonazepam (Klonopin) 0.5 mg PO TID [facility]; Protocol Last Admin: 12/07/18 17:20 Dose: 0.5 mg Nafcillin Sodium 2 gm/ (Dextrose) 100 mls @ 100 mls/hr IVPB Q6 [facility]; Protocol Last Admin: 12/08/18 05:26 Dose: 100 mls/hr Sodium Chloride (Sodium Chloride 0.9%) 1,000 mls @ 50 mls/hr IV .Q20H [facility] Last Admin: 12/08/18 05:29 Dose: 50 mls/hr Ibuprofen (Motrin Tab) 400 mg PO Q6H PRN PRN Reason: Pain, moderate (4-7) Mirtazapine (Remeron) 15 mg PO HS [facility] Last Admin: 12/07/18 21:04 Dose: 15 mg Oxycodone HCl (Oxycodone Immediate Release Tab) 10 mg PO Q6H PRN PRN Reason: Pain, moderate (4-7) Last Admin: 12/07/18 21:04 Dose: 10 mg Pantoprazole Sodium (Protonix Ec Tab) 40 mg PO ACB [facility] Last Admin: 12/07/18 06:29 Dose: 40 mg Pregabalin (Lyrica) 50 mg PO BID [facility] Last Admin: 12/07/18 17:19 Dose: 50 mg Tizanidine HCl (Zanaflex) 4 mg PO TID [facility] Last Admin: 12/07/18 17:20 Dose: 4 mg - Labs Labs: 12/07/18 10:00 12/07/18 10:00 - Constitutional Appears: Non-toxic, No Acute Distress - Head Exam Head Exam: NORMAL INSPECTION, NORMOCEPHALIC - Eye Exam Eye Exam: Normal appearance Pupil Exam: NORMAL ACCOMODATION - ENT Exam ENT Exam: Mucous Membranes Moist, Normal Exam - Neck Exam Neck Exam: Full ROM, Normal Inspection - Respiratory Exam Respiratory Exam: Clear to Ausculation Bilateral, NORMAL BREATHING PATTERN - Cardiovascular Exam Cardiovascular Exam: +S1, +S2 - GI/Abdominal Exam GI & Abdominal Exam: Soft, Normal Bowel Sounds - Extremities Exam Extremities Exam: Full ROM, Normal Capillary Refill - Neurological Exam Neurological Exam: Alert, Awake, Oriented x3 - Psychiatric Exam Psychiatric exam: Normal Affect, Normal Mood - Skin Skin Exam: Dry, Normal Color, Warm Assessment and Plan - Assessment and Plan (Free Text) Assessment: A 23 year old who came in to the ER due to becteremia. Patient was admitted last 11/30/18 due to fever and chills. Work up showed positive blood cultures,bacteremia (staphylococcus aureaus). He was on IV antibiotics and on 12/06/18 he eloped and came back to [facility]. He admits to using heroin prior to coming back to ER. Denies any other medical history. He smokes 1 pack per day for the past few years. He does not work and does not go to school. Consult was called to rule out endocarditis. Echo done on 12/01/18 and showed LVEF 57%, mild enlargement of the left atrium, mild posteriormitral valve prolapse, moderate mitral regurgiation, RVSP 29 mmHg,no pericardial effusion, no vegetation noted. ID recommending EUFEMIA to rule out vegetations. Scheduled for transesophageal echo cardiogram on . Cardiac status stable. Clinically stable. Plan: No distress, no fever Cardiac status stable Heart rate and blood pressure stable ID on consult Continue IV antibiotics as ordered Continue current treatment Continue current medications Watch out for withdrawal symptoms Lifestyle modification Complete cessation of heroin use and smoking Scheduled for EUFEMIA on Will follow up Plan and treatment discussed with Dr. Abel
[2018-12-08] MEDS: Pantoprazole 40 mg EC Tab PO SCH (09:38)
--- NOTE | 2018-12-08 13:03 | CP.PCM.PN ---
<Vaughn Briscoe - Last Filed: 12/08/18 15:22> Subjective - Date & Time of Evaluation Date of Evaluation: 12/08/18 Time of Evaluation: 08:35 - Subjective Subjective: Infectious dx progress note: Pt seen and examined at bedside. No acute events overnight. Pt denies any fever or chills. No complaints. Objective - Vital Signs/Intake and Output Vital Signs (last 24 hours): Temp Pulse Resp BP Pulse Ox 97.9 F 66 18 106/59 L 98 12/08/18 06:00 12/08/18 06:00 12/08/18 06:00 12/08/18 06:00 12/08/18 06:00 - Medications Medications: Current Medications Acetaminophen (Tylenol 325mg Tab) 650 mg PO Q4H PRN PRN Reason: Pain, Mild (1-3) Clonazepam (Klonopin) 0.5 mg PO TID [facility]; Protocol Last Admin: 12/08/18 09:37 Dose: 0.5 mg Nafcillin Sodium 2 gm/ (Dextrose) 100 mls @ 100 mls/hr IVPB Q6 [facility]; Protocol Last Admin: 12/08/18 11:50 Dose: 100 mls/hr Sodium Chloride (Sodium Chloride 0.9%) 1,000 mls @ 50 mls/hr IV .Q20H [facility] Last Admin: 12/08/18 05:29 Dose: 50 mls/hr Ibuprofen (Motrin Tab) 400 mg PO Q6H PRN PRN Reason: Pain, moderate (4-7) Mirtazapine (Remeron) 15 mg PO HS [facility] Last Admin: 12/07/18 21:04 Dose: 15 mg Oxycodone HCl (Oxycodone Immediate Release Tab) 10 mg PO Q6H PRN PRN Reason: Pain, severe (8-10) Pantoprazole Sodium (Protonix Ec Tab) 40 mg PO ACB [facility] Last Admin: 12/08/18 09:38 Dose: 40 mg Pregabalin (Lyrica) 50 mg PO BID [facility] Last Admin: 12/08/18 09:37 Dose: 50 mg Tizanidine HCl (Zanaflex) 4 mg PO TID [facility] Last Admin: 12/08/18 09:40 Dose: 4 mg - Labs Labs: 12/07/18 10:00 12/07/18 10:00 - Constitutional Appears: No Acute Distress - ENT Exam ENT Exam: Mucous Membranes Moist - Respiratory Exam Respiratory Exam: Clear to Ausculation Bilateral. absent: Rales, Wheezes - Cardiovascular Exam Cardiovascular Exam: REGULAR RHYTHM, +S1, +S2. absent: Murmur - GI/Abdominal Exam GI & Abdominal Exam: Soft. absent: Distended, Tenderness - Neurological Exam Neurological Exam: Alert, Awake - Skin Skin Exam: Dry, Warm Assessment and Plan - Assessment and Plan (Free Text) Assessment: Sepsis with bacteremia with staph aureus - probable endocarditis IV drug abuse with heroin Active smoker Continue with Nafcillin day Follow-up repeat blood cultures - neg Echo - no vegatations Follow-up cardiology recs - Plan for EUFEMIA on Continue to monitor for any changes Case and plan was to be reviewed and discussed with Dr. Vickers <Lenny Vickers - Last Filed: 12/08/18 22:02> Objective - Vital Signs/Intake and Output Vital Signs (last 24 hours): Temp Pulse Resp BP Pulse Ox 98.4 F 77 18 103/63 96 12/08/18 21:36 12/08/18 21:36 12/08/18 21:36 12/08/18 21:36 12/08/18 21:36 Intake and Output: 12/08/18 12/09/18 18:59 06:59 Intake Total 980 Balance 980 - Medications Medications: Current Medications Acetaminophen (Tylenol 325mg Tab) 650 mg PO Q4H PRN PRN Reason: Pain, Mild (1-3) Clonazepam (Klonopin) 0.5 mg PO TID [facility]; Protocol Last Admin: 12/08/18 19:26 Dose: 0.5 mg Enoxaparin Sodium (Lovenox) 40 mg SC DAILY [facility]; Protocol Last Admin: 12/08/18 16:14 Dose: 40 mg Nafcillin Sodium 2 gm/ (Dextrose) 100 mls @ 100 mls/hr IVPB Q6 [facility]; Protocol Last Admin: 12/08/18 19:13 Dose: 100 mls/hr Sodium Chloride (Sodium Chloride 0.9%) 1,000 mls @ 50 mls/hr IV .Q20H [facility] Last Admin: 12/08/18 05:29 Dose: 50 mls/hr Ibuprofen (Motrin Tab) 400 mg PO Q6H PRN PRN Reason: Pain, moderate (4-7) Mirtazapine (Remeron) 15 mg PO HS [facility] Last Admin: 12/08/18 21:38 Dose: 15 mg Oxycodone HCl (Oxycodone Immediate Release Tab) 10 mg PO Q6H PRN PRN Reason: Pain, severe (8-10) Last Admin: 12/08/18 20:16 Dose: 10 mg Pantoprazole Sodium (Protonix Ec Tab) 40 mg PO ACB [facility] Last Admin: 12/08/18 09:38 Dose: 40 mg Pregabalin (Lyrica) 50 mg PO BID [facility] Last Admin: 12/08/18 19:26 Dose: 50 mg Tizanidine HCl (Zanaflex) 4 mg PO TID [facility] Last Admin: 12/08/18 19:26 Dose: 4 mg - Labs Labs: 12/07/18 10:00 12/07/18 10:00 Attending/Attestation - Attestation I have personally seen and examined this patient.: Yes I have fully participated in the care of the patient.: Yes I have reviewed all pertinent clinical information, including history, physical exam and plan: Yes
[2018-12-08] MEDS: oxyCODONE 10 mg Immediate Release Tab PO PRN ×2 (14:21→20:16)
[2018-12-08] MEDS: Enoxaparin 40 mg Syringe SC SCH (16:14)
--- NOTE | 2018-12-08 21:58 | PN ---
DATE: 12/07/2018 SUBJECTIVE: The patient seems stable, comfortable, no distress, and he is walking around. He is getting IV antibiotics. I did ask to the patient about using heroin, there is no heroin with him, he did took all his clothes, so the patient seems stable, but he did receive one dose of heroin after the first admission. The patient currently stable. He is comfortable. No withdrawal. I will discuss with the psychiatrist probably the patient needs to get the Suboxone, the problem is the patient still need to be on Subutex, then we should give him the Suboxone very soon. I spoke with the pharmacist, it is okay, so again I repeat the liver function test T4, we give him the second shot before we give him the Sublocade injection. Otherwise, the patient clinically stable, afebrile. No nausea, no vomiting, and no diarrhea. PHYSICAL EXAMINATION: VITAL SIGNS: Temperature 97.6, heart rate 59, blood pressure 100/56, respirations 18, and sat 95% on room air. HEAD AND NECK: Normal. No JVD. No thyromegaly. CHEST: Clear bilateral. CARDIAC: First sound and second sound normal. ABDOMEN: Soft and nontender. EXTREMITIES: No edema. NEUROLOGIC: Normal. LABORATORY DATA: White count 8.9, hemoglobin 12.2, hematocrit 38, and platelets 265. Chemistry shows sodium 143, potassium 4, chloride 106, bicarb 27, BUN 7, and creatinine 0.7. The patient has liver enzymes, which is slightly elevated 63 AST and ALT 72 and alk phos is normal. IMPRESSION AND PLAN: 1. Infective endocarditis possibly rule out, the patient will need transesophageal echocardiogram. 2. Gram-positive clusters in the blood. Continue IV antibiotic. Advised the patient to stay minimally one month, he agreed, family agreed. 3. Abnormal liver function test. I wonder if the patient's heroin injection he got is contaminated with hepatitis C, we do not know, we will order hepatitis profile and we will see how he do. 4. Drug use disorder. At this time, he is on Percocet. The patient will need to be on Subutex. Once I stabilized the liver functions test, I will get it to him. The patient is critically sick, he will if he did not receive the antibiotic from the Gram-positive Staphylococcus bacteremia - endocarditis, high mortality, high risk of complications, so I will continue current management. We will get Psychiatry consult to follow up with the patient's condition and follow her advice. Continue current therapy. Edson Weiss MD
--- NOTE | 2018-12-09 07:02 | CP.PCM.PN ---
Subjective - Date & Time of Evaluation Date of Evaluation: 12/09/18 Time of Evaluation: 06:45 - Subjective Subjective: Feels okay, awake, alert Reason for consultation and follow up:Cardiac evaluation for endocarditis, current heroine abuse Seen and examined by me and Dr. Abel Objective - Vital Signs/Intake and Output Vital Signs (last 24 hours): Temp Pulse Resp BP Pulse Ox 98.4 F 77 18 103/63 96 12/08/18 21:36 12/08/18 21:36 12/08/18 21:36 12/08/18 21:36 12/08/18 21:36 Intake and Output: 12/09/18 12/09/18 06:59 18:59 Intake Total 980 Balance 980 - Medications Medications: Current Medications Acetaminophen (Tylenol 325mg Tab) 650 mg PO Q4H PRN PRN Reason: Pain, Mild (1-3) Clonazepam (Klonopin) 0.5 mg PO TID [facility]; Protocol Last Admin: 12/08/18 19:26 Dose: 0.5 mg Enoxaparin Sodium (Lovenox) 40 mg SC DAILY [facility]; Protocol Last Admin: 12/08/18 16:14 Dose: 40 mg Nafcillin Sodium 2 gm/ (Dextrose) 100 mls @ 100 mls/hr IVPB Q6 [facility]; Protocol Last Admin: 12/09/18 05:23 Dose: 100 mls/hr Sodium Chloride (Sodium Chloride 0.9%) 1,000 mls @ 50 mls/hr IV .Q20H [facility] Last Admin: 12/08/18 05:29 Dose: 50 mls/hr Ibuprofen (Motrin Tab) 400 mg PO Q6H PRN PRN Reason: Pain, moderate (4-7) Mirtazapine (Remeron) 15 mg PO HS [facility] Last Admin: 12/08/18 21:38 Dose: 15 mg Oxycodone HCl (Oxycodone Immediate Release Tab) 10 mg PO Q6H PRN PRN Reason: Pain, severe (8-10) Last Admin: 12/08/18 20:16 Dose: 10 mg Pantoprazole Sodium (Protonix Ec Tab) 40 mg PO ACB [facility] Last Admin: 12/08/18 09:38 Dose: 40 mg Pregabalin (Lyrica) 50 mg PO BID [facility] Last Admin: 12/08/18 19:26 Dose: 50 mg Tizanidine HCl (Zanaflex) 4 mg PO TID [facility] Last Admin: 12/08/18 19:26 Dose: 4 mg - Labs Labs: 12/07/18 10:00 12/07/18 10:00 - Constitutional Appears: Non-toxic, No Acute Distress - Head Exam Head Exam: NORMAL INSPECTION, NORMOCEPHALIC - Eye Exam Eye Exam: Normal appearance Pupil Exam: NORMAL ACCOMODATION - ENT Exam ENT Exam: Mucous Membranes Moist, Normal Exam - Neck Exam Neck Exam: Full ROM, Normal Inspection - Respiratory Exam Respiratory Exam: Decreased Breath Sounds, Clear to Ausculation Bilateral, CHRISTA L BREATHING PATTERN - Cardiovascular Exam Cardiovascular Exam: +S1, +S2 - GI/Abdominal Exam GI & Abdominal Exam: Soft, Normal Bowel Sounds - Extremities Exam Extremities Exam: Full ROM, Normal Capillary Refill - Neurological Exam Neurological Exam: Alert, Awake, Oriented x3 - Psychiatric Exam Psychiatric exam: Normal Affect, Normal Mood - Skin Skin Exam: Dry, Normal Color, Warm Assessment and Plan - Assessment and Plan (Free Text) Assessment: A 23 year old who came in to the ER due to becteremia. Patient was admitted last 11/30/18 due to fever and chills. Work up showed positive blood cultur es,bacteremia (staphylococcus aureaus). He was on IV antibiotics and on 12/06/18 he eloped and came back to [facility] ER. He admits to using heroin prior to coming back to ER. Denies any other medical history. He smokes 1 pack per day for the past few years. He does not work and does not go to school. Consult was called to rule out endocarditis. Echo done on 12/01/18 and showed LVEF 57%, mild enlargement of the left atrium, mild posteriormitral valve prolapse, moderate mitral regurgiation, RVSP 29 mmHg,no pericardial effusion, no vegetation noted. ID recommending EUFEMIA. For transesophageal echocardiogram today. Kept NPO. Plan: For EUFEMIA on today Kept NPO No distress, no fever Cardiac status stable Heart rate and blood pressure stable ID on consult Continue IV antibiotics as ordered Continue current treatment Continue current medications Watch out for withdrawal symptoms Further recommendations post EUFEMIA Will follow up Plan and treatment discussed with Dr. Abel
[2018-12-09] MEDS: Pantoprazole 40 mg EC Tab PO SCH (08:00)
--- NOTE | 2018-12-09 09:16 | CP.PCM.PN ---
<Vaughn Briscoe - Last Filed: 12/09/18 14:12> Subjective - Date & Time of Evaluation Date of Evaluation: 12/09/18 Time of Evaluation: 10:40 - Subjective Subjective: Infectious dx progress note: Pt seen and examined at bedside. No acute events overnight. NPO for EUFEMIA today. No fevers. No complaints. Objective - Vital Signs/Intake and Output Vital Signs (last 24 hours): Temp Pulse Resp BP Pulse Ox 97.3 F L 64 15 94/49 L 98 12/09/18 06:00 12/09/18 06:00 12/09/18 06:00 12/09/18 06:00 12/09/18 06:00 Intake and Output: 12/09/18 12/09/18 06:59 18:59 Intake Total 980 Balance 980 - Medications Medications: Current Medications Acetaminophen (Tylenol 325mg Tab) 650 mg PO Q4H PRN PRN Reason: Pain, Mild (1-3) Clonazepam (Klonopin) 0.5 mg PO TID [facility]; Protocol Last Admin: 12/08/18 19:26 Dose: 0.5 mg Enoxaparin Sodium (Lovenox) 40 mg SC DAILY [facility]; Protocol Last Admin: 12/08/18 16:14 Dose: 40 mg Nafcillin Sodium 2 gm/ (Dextrose) 100 mls @ 100 mls/hr IVPB Q6 [facility]; Protocol Last Admin: 12/09/18 05:23 Dose: 100 mls/hr Sodium Chloride (Sodium Chloride 0.9%) 1,000 mls @ 50 mls/hr IV .Q20H [facility] Last Admin: 12/08/18 05:29 Dose: 50 mls/hr Ibuprofen (Motrin Tab) 400 mg PO Q6H PRN PRN Reason: Pain, moderate (4-7) Mirtazapine (Remeron) 15 mg PO HS [facility] Last Admin: 12/08/18 21:38 Dose: 15 mg Oxycodone HCl (Oxycodone Immediate Release Tab) 10 mg PO Q6H PRN PRN Reason: Pain, severe (8-10) Last Admin: 12/08/18 20:16 Dose: 10 mg Pantoprazole Sodium (Protonix Ec Tab) 40 mg PO ACB [facility] Last Admin: 12/08/18 09:38 Dose: 40 mg Pregabalin (Lyrica) 50 mg PO BID [facility] Last Admin: 12/08/18 19:26 Dose: 50 mg Tizanidine HCl (Zanaflex) 4 mg PO TID [facility] Last Admin: 12/08/18 19:26 Dose: 4 mg - Labs Labs: 12/07/18 10:00 12/07/18 10:00 - Constitutional Appears: No Acute Distress - ENT Exam ENT Exam: Mucous Membranes Moist - Respiratory Exam Respiratory Exam: Clear to Ausculation Bilateral. absent: Rales, Wheezes - Cardiovascular Exam Cardiovascular Exam: REGULAR RHYTHM, +S1, +S2. absent: Murmur - GI/Abdominal Exam GI & Abdominal Exam: Soft. absent: Tenderness - Extremities Exam Extremities Exam: absent: Calf Tenderness, Pedal Edema - Neurological Exam Neurological Exam: Alert, Awake - Psychiatric Exam Psychiatric exam: Normal Mood - Skin Skin Exam: Dry, Warm Assessment and Plan - Assessment and Plan (Free Text) Assessment: Sepsis with bacteremia with staph aureus - probable endocarditis IV drug abuse with heroin Active smoker Transaminitis F/u EUFEMIA plan for today, will f/u with cardiology and will determine course of abx duration Continue with Nafcillin day 6 of 28 F/u abd US - neg Follow-up repeat blood cultures - neg Echo - no vegatations Follow-up cardiology recs - Continue to monitor for any changes Case and plan was to be reviewed and discussed with Dr. Vickers <Lenny Vickers - Last Filed: 12/09/18 22:01> Objective - Vital Signs/Intake and Output Vital Signs (last 24 hours): Temp Pulse Resp BP Pulse Ox 0 F L 0 L 0 L 101/63 98 12/09/18 14:41 12/09/18 14:41 12/09/18 14:41 12/09/18 14:40 12/09/18 14:40 Intake and Output: 12/09/18 12/10/18 18:59 06:59 Intake Total 150 660 Balance 150 660 - Medications Medications: Current Medications Acetaminophen (Tylenol 325mg Tab) 650 mg PO Q4H PRN PRN Reason: Pain, Mild (1-3) Clonazepam (Klonopin) 0.5 mg PO TID [facility]; Protocol Last Admin: 12/09/18 20:41 Dose: 0.5 mg Enoxaparin Sodium (Lovenox) 40 mg SC DAILY [facility]; Protocol Last Admin: 12/09/18 15:12 Dose: 40 mg Nafcillin Sodium 2 gm/ (Dextrose) 100 mls @ 100 mls/hr IVPB Q6 [facility]; Protocol Last Admin: 12/09/18 18:26 Dose: 100 mls/hr Sodium Chloride (Sodium Chloride 0.9%) 1,000 mls @ 50 mls/hr IV .Q20H [facility] Last Admin: 12/08/18 05:29 Dose: 50 mls/hr Ibuprofen (Motrin Tab) 400 mg PO Q6H PRN PRN Reason: Pain, moderate (4-7) Mirtazapine (Remeron) 15 mg PO HS [facility] Last Admin: 12/08/18 21:38 Dose: 15 mg Oxycodone HCl (Oxycodone Immediate Release Tab) 10 mg PO Q6H PRN PRN Reason: Pain, severe (8-10) Last Admin: 12/09/18 18:25 Dose: 10 mg Pantoprazole Sodium (Protonix Ec Tab) 40 mg PO ACB [facility] Last Admin: 12/09/18 08:00 Dose: Not Given Pregabalin (Lyrica) 50 mg PO BID [facility] Last Admin: 12/09/18 18:34 Dose: 50 mg Tizanidine HCl (Zanaflex) 4 mg PO TID [facility] Last Admin: 12/09/18 20:42 Dose: 4 mg - Labs Labs: 12/09/18 09:50 12/09/18 09:50 Attending/Attestation - Attestation I have personally seen and examined this patient.: Yes I have fully participated in the care of the patient.: Yes I have reviewed all pertinent clinical information, including history, physical exam and plan: Yes
[2018-12-09 10:07] LABS: BASO # 0.02 K/mm3 (0.0-2.0); BASO % 0.3 % (0.0-3.0); EOS # 0.2 (0.0-0.7); EOS % 2.9 % (1.5-5.0); HEMOGLOBIN 12.1 g/dL (14.0-18.0); LYMPH # 2.1 (1.2-3.4); LYMPH % 29.7 % (22.0-35.0); MEAN CELL VOLUME 85.1 fl (80.0-105.0); MEAN CORPUSCULAR HEMOGLOBIN 27.3 pg (25.0-35.0); MEAN PLATELET VOLUME 9.8 fl (7.0-11.0); MONO # 0.7 (0.1-0.6); MONO % 10.3 % (1.0-6.0); RBC 4.44 10^6/uL (3.5-6.1); RED CELL DISTRIBUTION WIDTH 14.9 % (11.5-14.5); WHITE BLOOD COUNT 7.2 10^3/uL (4.5-11.0)
[2018-12-09 10:22] LABS: ALB/GLOB RATIO 1.4 (1.1-1.8); ALBUMIN 4.2 g/dL (3.0-4.8); ALT/SGPT 64 U/L (7-56); AST/SGOT 40 U/L (17-59); BLOOD UREA NITROGEN 7 mg/dL (7-21); CALCIUM 9.6 mg/dL (8.4-10.5); GFR NON-AFRICAN AMERICAN > 60
--- NOTE | 2018-12-09 12:21 | US ---
Date of service: 12/08/2018 HISTORY: abnormal lfts COMPARISON: None. TECHNIQUE: Sonographic evaluation of the right upper quadrant of the abdomen. FINDINGS: LIVER: Measures cm in length. Normal echogenicity of the liver parenchyma. No mass. No intrahepatic bile duct dilatation. GALLBLADDER: Unremarkable. No gallstones. COMMON BILE DUCT: Measures mm. No stones. No dilatation. PANCREAS: Unremarkable as visualized. No mass. No ductal dilatation. RIGHT KIDNEY: Measures cm in length. Normal echogenicity. No calculus, mass, or hydronephrosis. AORTA: No aneurysmal dilatation. IVC: Unremarkable. OTHER FINDINGS: None . IMPRESSION: Normal exam.
[2018-12-09] MEDS ORDERED: Midazolam 2 MG/2 ML VIAL ONE (13:22)
[2018-12-09] MEDS ORDERED: Flumazenil 0.1 mg/ml Inj (5ml) IVP ONE (13:23)
[2018-12-09] MEDS ORDERED: Naloxone 0.4 mg/ml Inj (Adult) ONE (13:23)
[2018-12-09] MEDS ORDERED: Midazolam 2 MG/2 ML VIAL IV ONE ×3 (13:35→13:43)
[2018-12-09] MEDS ORDERED: Sodium Chloride 0.9% 1,000 ML IV SCH (14:00)
[2018-12-09] MEDS: Enoxaparin 40 mg Syringe SC SCH (15:12)
--- NOTE | 2018-12-09 16:31 | CON ---
DATE OF CONSULTATION: 12/09/2018 HISTORY OF PRESENT ILLNESS: In short, the patient is a 23-year-old male with reported history of opioid use disorder. The patient was using intravenous opioids. The patient was initially admitted on the medical side for bacteremia on 11/30. The patient eloped from the hospital on 12/03. The patient came back to the hospital on 12/03 for the same reason. Psych consult was called for evaluation of possible depressive symptoms, and the patient is using drugs. The patient was seen by this sign writer letterer or painter on last admission. Please see notes for more detailed information dated 12/02 back then, and today, the patient denied being depressed, denied any thoughts of harming himself or others. In regard of substance abuse, the patient reported that he is using intravenous heroin about five to six bags a day. The patient had never been in rehab. The patient is not interested to be referred to inpatient rehab. The patient was interested to be referred to [facility]. Going back to the patient's symptoms, the patient denied feeling anxious, denied feeling of hopelessness or helplessness. The patient reports that he was working, but for the past 5 days he was not able to work because he was physically sick. The patient denied hearing voices, denied seeing things, denied paranoid ideation. The patient does not present to be psychotic. PHYSICAL EXAMINATION: VITAL SIGNS: Reviewed. The patient's temperature 98, pulse 79, blood pressure 100/67, respirations 20, and oxygen saturation is 98. MEDICATIONS: Reviewed. The patient is on Klonopin 0.5 mg three times a day, Lovenox, Motrin, Remeron 15 mg at the nighttime for insomnia and depression. The patient is on IV antibiotics. The patient is on oxycodone, Protonix, Lyrica, sodium chloride, and Zanaflex. LABORATORY DATA: Labs reviewed. Chemistry reviewed. Toxicology was positive for opioids. Serology negative for HIV, staph aureus in the blood dated 12/02. MENTAL STATUS EXAMINATION: The patient presented to be alert, flat affect. Mood described as little depressed. Thought process seems to be coherent and goal-directed. Thought content, the patient denied visual, auditory, or tactile hallucinations. Denied paranoid ideation. The patient denied thoughts of harming himself or others, denied intent or plan. Insight and judgment seemed to be limited due to his addition to opioids. Impulses are well controlled. IMPRESSION: Opioid use disorder, severe. Opioid withdrawal symptoms seems to be under control, rule out substance-induced mood disorder. At present moment, the patient is in the hospital for sepsis. PLAN: Continue current management. Continue current medications. The patient expressed interest to go to [facility] as well as [facility]. This sign writer letterer or painter spoke to [employer]er. [employer] Buyer will provide the patient with information about outpatient programs. The patient was offered inpatient rehab for drugs referral, but the patient declined that offer. The patient seems to be not interested to be referred there. Meanwhile, the patient is not suicidal, not homicidal, not in any imminent danger to self or others. Opioid cessation recommended strongly. Meanwhile, there are no acute psychiatric issues going on. This sign writer letterer or painter will sign off. Should you have any questions give me a call back. Jessica Mustafa MD [email or web address]
[2018-12-09 17:00] LABS: HEPATITIS B SURFACE AG Negative (NEGATIVE)
[2018-12-09 17:07] LABS: HEPATITIS A IGM NEGATIVE (NEGATIVE); HEPATITIS B CORE AB NEGATIVE (NEGATIVE)
[2018-12-09 17:19] LABS: HEPATITIS C ANTIBODY NEGATIVE (NEGATIVE)
[2018-12-09] MEDS: oxyCODONE 10 mg Immediate Release Tab PO PRN (18:25)
[2018-12-09] MEDS: Sodium Chloride 0.9% 1,000 ML IV SCH (22:06)
[2018-12-10] MEDS: oxyCODONE 10 mg Immediate Release Tab PO PRN ×3 (05:01→21:48)
[2018-12-10] MEDS: Sodium Chloride 0.9% 1,000 ML IV SCH (05:03)
[2018-12-10 07:33] LABS: ALB/GLOB RATIO 1.4 (1.1-1.8); ALBUMIN 4.5 g/dL (3.0-4.8); BILIRUBIN,DIRECT 0.5 mg/dL (0.0-0.4)
--- NOTE | 2018-12-10 08:00 | CP.PCM.PN ---
<Vaughn Briscoe - Last Filed: 12/10/18 15:25> Subjective - Date & Time of Evaluation Date of Evaluation: 12/10/18 Time of Evaluation: 09:00 - Subjective Subjective: Infectious dx progress note: Pt seen and examined at bedside. No acute events overnight. No complaints. No fevers or chills. Had EUFEMIA yesterday. 12 Point ROS performed and neg other than stated above Objective - Vital Signs/Intake and Output Vital Signs (last 24 hours): Temp Pulse Resp BP Pulse Ox 98.1 F 71 18 114/78 100 12/10/18 06:00 12/10/18 06:00 12/10/18 06:00 12/10/18 06:00 12/10/18 06:00 Intake and Output: 12/10/18 12/10/18 06:59 18:59 Intake Total 660 Balance 660 - Medications Medications: Current Medications Acetaminophen (Tylenol 325mg Tab) 650 mg PO Q4H PRN PRN Reason: Pain, Mild (1-3) Clonazepam (Klonopin) 0.5 mg PO TID [facility]; Protocol Last Admin: 12/09/18 20:41 Dose: 0.5 mg Enoxaparin Sodium (Lovenox) 40 mg SC DAILY [facility]; Protocol Last Admin: 12/09/18 15:12 Dose: 40 mg Nafcillin Sodium 2 gm/ (Dextrose) 100 mls @ 100 mls/hr IVPB Q6 [facility]; Protocol Last Admin: 12/10/18 06:00 Dose: 100 mls/hr Sodium Chloride (Sodium Chloride 0.9%) 1,000 mls @ 50 mls/hr IV .Q20H [facility] Last Admin: 12/10/18 05:03 Dose: 50 mls/hr Ibuprofen (Motrin Tab) 400 mg PO Q6H PRN PRN Reason: Pain, moderate (4-7) Mirtazapine (Remeron) 15 mg PO HS [facility] Last Admin: 12/09/18 22:06 Dose: 15 mg Oxycodone HCl (Oxycodone Immediate Release Tab) 10 mg PO Q6H PRN PRN Reason: Pain, severe (8-10) Last Admin: 12/10/18 05:01 Dose: 10 mg Pantoprazole Sodium (Protonix Ec Tab) 40 mg PO ACB [facility] Last Admin: 12/09/18 08:00 Dose: Not Given Paroxetine HCl (Paxil) 10 mg PO DAILY [facility] Pregabalin (Lyrica) 50 mg PO BID [facility] Last Admin: 12/09/18 18:34 Dose: 50 mg Tizanidine HCl (Zanaflex) 4 mg PO TID [facility] Last Admin: 12/09/18 20:42 Dose: 4 mg - Labs Labs: 12/09/18 09:50 12/09/18 09:50 - Constitutional Appears: No Acute Distress - Head Exam Head Exam: ATRAUMATIC, NORMOCEPHALIC - Eye Exam Eye Exam: EOMI - Respiratory Exam Respiratory Exam: Clear to Ausculation Bilateral. absent: Rales, Wheezes - Cardiovascular Exam Cardiovascular Exam: REGULAR RHYTHM, +S1, +S2 - GI/Abdominal Exam GI & Abdominal Exam: Soft. absent: Distended, Tenderness - Extremities Exam Extremities Exam: absent: Calf Tenderness, Pedal Edema - Neurological Exam Neurological Exam: Alert, Awake - Skin Skin Exam: Dry, Warm Assessment and Plan - Assessment and Plan (Free Text) Assessment: Sepsis with bacteremia with staph aureus - probable endocarditis IV drug abuse with heroin Active smoker Transaminitis Follow-up cardiology recs - regarding EUFEMIA Continue with Nafcillin day 7 of 28 Follow-up repeat blood cultures - neg Continue to monitor for any changes Case and plan was to be reviewed and discussed with Dr. Vickers <Lenny Vickers - Last Filed: 12/10/18 22:50> Objective - Vital Signs/Intake and Output Vital Signs (last 24 hours): Temp Pulse Resp BP Pulse Ox 97.5 F L 107 H 18 105/68 100 12/10/18 14:00 12/10/18 14:00 12/10/18 14:00 12/10/18 14:00 12/10/18 14:00 Intake and Output: 12/10/18 12/11/18 18:59 06:59 Intake Total 660 Balance 660 - Medications Medications: Current Medications Acetaminophen (Tylenol 325mg Tab) 650 mg PO Q4H PRN PRN Reason: Pain, Mild (1-3) Clonazepam (Klonopin) 0.5 mg PO TID [facility]; Protocol Last Admin: 12/10/18 17:20 Dose: 0.5 mg Enoxaparin Sodium (Lovenox) 40 mg SC DAILY [facility]; Protocol Last Admin: 12/10/18 09:52 Dose: 40 mg Nafcillin Sodium 2 gm/ (Dextrose) 100 mls @ 100 mls/hr IVPB Q6 [facility]; Protocol Last Admin: 12/10/18 17:20 Dose: 100 mls/hr Ibuprofen (Motrin Tab) 400 mg PO Q6H PRN PRN Reason: Pain, moderate (4-7) Mirtazapine (Remeron) 15 mg PO HS [facility] Last Admin: 12/10/18 21:49 Dose: 15 mg Nicotine (Nicoderm Cq) 1 patch TD DAILY [facility] Oxycodone HCl (Oxycodone Immediate Release Tab) 10 mg PO Q6H PRN PRN Reason: Pain, severe (8-10) Last Admin: 12/10/18 21:48 Dose: 10 mg Pantoprazole Sodium (Protonix Ec Tab) 40 mg PO ACB [facility] Last Admin: 12/10/18 09:52 Dose: 40 mg Paroxetine HCl (Paxil) 10 mg PO DAILY [facility] Last Admin: 12/10/18 09:52 Dose: 10 mg Pregabalin (Lyrica) 50 mg PO BID [facility] Last Admin: 12/10/18 17:20 Dose: 50 mg Tizanidine HCl (Zanaflex) 4 mg PO TID [facility] Last Admin: 12/10/18 17:20 Dose: 4 mg - Labs Labs: 12/09/18 09:50 12/09/18 09:50 Attending/Attestation - Attestation I have personally seen and examined this patient.: Yes I have fully participated in the care of the patient.: Yes I have reviewed all pertinent clinical information, including history, physical exam and plan: Yes
[2018-12-10] MEDS: Pantoprazole 40 mg EC Tab PO SCH (09:52)
[2018-12-10] MEDS: Enoxaparin 40 mg Syringe SC SCH (09:52)
--- NOTE | 2018-12-10 14:27 | PN ---
DATE: 12/08/2018 SUBJECTIVE: The patient Is stable, has EUFEMIA. The patient was seen while EUFEMIA and has mild-moderate MR, no vegetations. The patient has no complaint. No chest pain. No respiratory distress. PHYSICAL EXAMINATION: VITAL SIGNS: Temperature is 98, heart rate 88, blood pressure 101/63, respirations 12, saturation 98%. HEAD AND NECK: Normal. No JVD. No thyromegaly. CHEST: Clear bilateral. CARDIAC: First sound and second sound normal. No murmur, rub, or gallop. ABDOMEN: Soft and nontender. EXTREMITIES: No edema. NEUROLOGIC: Normal. LABORATORY DATA: White count 7.2, hemoglobin 12.1, hematocrit 37.8, and platelets 208. Sodium 141, potassium 4.4, chloride 103, bicarb 28, BUN 7, and creatinine 0.6. Liver function test is stable. His AST is normal now at 40, alk phos is normal, and ALT is going down to 64; the patient otherwise stable. Also, hepatitis serology A, B, and C came back negative. IMPRESSION AND PLAN: 1. Infective endocarditis, Gram-positive clusters. Continue IV nafcillin. 2. Chronic heroin use disorder and drug addiction disorder. We will consider the Sublocade injections. 3. Chronic anxiety, stable with Klonopin, we will try to reduce the dose to a lower dose and also give him Paxil. The patient is currently on Remeron. 4. Continue current therapy. Follow up clinically. Edson Weiss MD
[2018-12-11] MEDS: Pantoprazole 40 mg EC Tab PO SCH (08:00)
[2018-12-11] MEDS: oxyCODONE 10 mg Immediate Release Tab PO PRN ×2 (10:41→20:34)
[2018-12-11] MEDS: Enoxaparin 40 mg Syringe SC SCH (10:45)
--- NOTE | 2018-12-11 12:10 | PN ---
DATE: 12/10/2018 SUBJECTIVE: The patient is stable, no complaints. Mother at the bedside. Sublocade injections, planning to get it the coming week after this weekend. The liver enzymes are repeated. The results are pending. We will wait till the liver enzymes come down. The patient has no chest pain, no shortness of breath. He is comfortable, currently on IV nafcillin for gram-positive bacteremia. PHYSICAL EXAMINATION: GENERAL: Text. VITAL SIGNS: Temperature 97.5, heart rate 71, blood pressure 114/78, respirations 18, sat 100%. HEAD AND NECK: Normal. No JVD. No thyromegaly. CHEST: Clear bilaterally. CARDIAC: First sound and second sound normal. ABDOMEN: Soft and nontender. EXTREMITIES: Normal. LABORATORY DATA: His liver enzymes came back normal. Bilirubin 0.5, slightly elevated. CURRENT MEDICATIONS: He is getting Zanaflex, Tylenol, Remeron, Protonix, Paxil, Nicoderm CQ, , ibuprofen, nafcillin, Lyrica, Lovenox, and Klonopin 0.5. IMPRESSION: 1. Gram-positive bacteremia Staph aureus from intravenous drug user. Continue intravenous antibiotics. 2. Abnormal liver function test results. 3. Obviate addiction heroin. The patient was discussed with him and mother, we will get him the shot next week. We will start him on Suboxone for a couple of days and then we will give it before discharge. He tolerated the Suboxone good. PLAN: Continue current therapy. Continue GI and DVT prophylaxis. To decrease the dosage of Klonopin, and we will discontinue the oxycodone. Edson Weiss MD
--- NOTE | 2018-12-11 13:04 | CARD ---
APPROVED REPORT Date of service: 12/09/2018 EXAM: Transesophageal echocardiogram with color flow Doppler. INDICATION Infection : Rule out subacute bacterial endocarditis Reason For Test : Rule out endocarditis. PROCEDURE After obtaining informed consent, patient underwent transesophageal echo in the Echo Lab. Type of Sedation : Conscious Sedation Sedation was administered by Dr. davalos. Sedation was achieved with Versed and fentanyl 3 mg and 200 mcg intravenously. Transesophageal probe was inserted and advanced into esophagus without difficulty. Echo enhancement indication: R/O Septal defect. Echo enhancement agent administered: Agitated Saline The EUFEMIA was performed without complications. Throughout the procedure, the blood pressure, pulse oximetry, cardiac rhythm, and rate were monitored. The patient tolerated the procedure without adverse effects. Recovery from conscious sedation was uneventful and vital signs were stable. LEFT VENTRICLE The left ventricle is normal size. There is normal left ventricular wall thickness. The left ventricular function is normal.EF-55-60% There is normal LV segmental wall motion. The left ventricular diastolic function is normal. No left ventricle thrombus noted on this study. There is no ventricular septal defect visualized. There is no left ventricular aneurysm. There is no mass noted in the left ventricle. RIGHT VENTRICLE The right ventricle is normal size. There is normal right ventricular wall thickness. The right ventricular systolic function is normal. ATRIA The left atrium is mildly dilated. The right atrium size is normal. The interatrial septum is intact with no evidence for an atrial septal defect by color flow and bubble study. AORTIC VALVE The aortic valve is normal in structure. There is trace aortic regurgitation. There is no aortic valvular stenosis. There is no aortic valvular vegetation. MITRAL VALVE The mitral valve leaflets are thickened. Redundant elongated chordae are noted. 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 Mitral regurgitation is moderate, when SBP 111/75 TRICUSPID VALVE The tricuspid valve is normal in structure. The tricuspid valve leaflets display thickening. There is trace tricuspid regurgitation. There is no tricuspid valve prolapse or vegetation. There is no tricuspid valve stenosis. PULMONIC VALVE The pulmonary valve is normal in structure. There is trace pulmonic valvular regurgitation. There is no pulmonic valvular stenosis. GREAT VESSELS The aortic root is normal in size. The ascending aorta is normal in size. The pulmonary artery is normal. The IVC is normal in size and collapses >50% with inspiration. PERICARDIAL EFFUSION There is no pericardial effusion. There is no pleural effusion. <Conclusion> The left ventricle is normal size. There is trace aortic regurgitation. Redundant elongated chordae are noted. 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 There is no pleural effusion. Velocity in ELAN>0.8 m/s No significant plaque in aorta noted The interatrial septum is intact with no evidence for an atrial septal defect by color flow and bubble study. No vegetation or thrombus noted.
[2018-12-12] MEDS: Pantoprazole 40 mg EC Tab PO SCH (10:52)
[2018-12-12] MEDS: oxyCODONE 10 mg Immediate Release Tab PO PRN ×2 (10:56→21:41)
[2018-12-12] MEDS: Enoxaparin 40 mg Syringe SC SCH (13:32)
--- NOTE | 2018-12-12 15:03 | PN ---
DATE: 12/12/2018 SUBJECTIVE: Patient is in bed, in no acute distress, nontoxic. PHYSICAL EXAMINATION: VITAL SIGNS: Temperature is 98, blood pressure is 116/70, respiratory rate of 20. HEENT: Unremarkable. NECK: Supple. LUNGS: Decreased breath sounds. HEART: Normal S1 and S2. ABDOMEN: Soft. LABORATORY EXAMINATION: Reveals a white count of 7.2, hemoglobin of 12, sed rate is 14, C-reactive protein is 6.2, creatinine is 0.6. Toxicology is noted. Microbiology reveals one bottle is positive from . The cultures are negative from and it was sensitive Staphylococcus aureus. MEDICATIONS: Review of orders reveals the patient to be on nafcillin. ASSESSMENT AND PLAN: A 23-year-old male who is an intravenous drug abuser with sepsis with sensitive Staphylococcus aureus endocarditis. Patient had EUFEMIA which was reported to be negative. This was done on the . No vegetation, no thrombosis is seen on transesophageal echocardiogram. Today is day #9 of antibiotics of nafcillin. We will follow with you. Lenny Vickers MD
[2018-12-13] MEDS: oxyCODONE 10 mg Immediate Release Tab PO PRN (05:23)
[2018-12-13] MEDS: Pantoprazole 40 mg EC Tab PO SCH (06:35)
[2018-12-13 08:38] LABS: HEMOGLOBIN 12.5 g/dL (14.0-18.0); MEAN CELL VOLUME 84.7 fl (80.0-105.0); MEAN CORPUSCULAR HEMOGLOBIN 27.8 pg (25.0-35.0); MEAN CORPUSCULAR HGB CONC 32.8 g/dl (31.0-37.0); MEAN PLATELET VOLUME 9.2 fl (7.0-11.0); RBC 4.5 10^6/uL (3.5-6.1); WHITE BLOOD COUNT 8.1 10^3/uL (4.5-11.0)
[2018-12-13 09:13] LABS: ALB/GLOB RATIO 1.3 (1.1-1.8); ALBUMIN 4.5 g/dL (3.0-4.8); ALT/SGPT 47 U/L (7-56); AST/SGOT 33 U/L (17-59); BLOOD UREA NITROGEN 10 mg/dL (7-21); CALCIUM 9.5 mg/dL (8.4-10.5); GFR NON-AFRICAN AMERICAN > 60
[2018-12-13] MEDS: Enoxaparin 40 mg Syringe SC SCH (09:27)
--- NOTE | 2018-12-13 10:25 | PN ---
DATE: 12/13/2018 SUBJECTIVE: The patient is seen earlier today in 565, bed 1. The patient has complained of back pain. No fevers. No chills. PHYSICAL EXAMINATION: VITAL SIGNS: On exam, temperature is 98, blood pressure is 100/60, respiratory rate 20. HEENT: Unremarkable. NECK: Supple. HEART: Normal S1, S2. LUNGS: Have decreased breath sounds. ABDOMEN: Soft and nontender. BACK: There is no point tenderness. LABORATORY DATA: Reveals the patient's white count of 7.2 and hemoglobin of 12. The sed rate is only 14. Chemistries reveals the C-reactive protein is only 6.2. Chemistries are noted. MEDICATIONS: The patient is currently on nafcillin which requires renewal which I will do so. ASSESSMENT AND PLAN: This is a 23-year-old [place] male who is an active intravenous drug abuser who was admitted with sepsis with sensitive staphylococcus aureus bacteremia with a negative EUFEMIA of back pain. We will order an MRI of the lumbar spine to rule out a vertebral osteomyelitis versus diskitis. We will continue treating the patient with nafcillin. Repeat the sedimentation rate and C-reactive protein and order a CBC and a chemistry in addition to sedimentation rate and C-reactive protein and today is day #10 of nafcillin. We will need 14 days of nafcillin if the MRI is negative and the sedimentation rate and a C-reactive protein is still within normal limits 10 of 14 days for transient bacteremia with negative EUFEMIA, pending MRI. Lenny Vickers MD
[2018-12-13] MEDS ORDERED: Potassium Chloride 20 mEq ER Tab PO ONE (10:49)
[2018-12-13] MEDS: oxyCODONE 5 mg Immediate Release Tab PO SCH ×2 (12:55→16:43)
--- NOTE | 2018-12-13 15:32 | PN ---
DATE: 12/10/2018 SUBJECTIVE: The patient is stable. No complaints, sitting next to the chair. He has no chest pain, no shortness of breath, getting IV antibiotics. Accepting getting detox before discharge which he and his mother understood. The risks and benefits and complications of the medication has been explained to the patient. PHYSICAL EXAMINATION: VITAL SIGNS: Temperature 98, heart rate 97, blood pressure 116/75, and respirations 18. Saturations 98%. HEAD AND NECK: Normal. No JVD. No thyromegaly. CHEST: Clear bilaterally. CARDIAC: First sound and second sound normal. No murmur, rub, or gallop. ABDOMEN: Soft, nontender. EXTREMITIES: No edema. NEUROLOGICAL: Normal. LABORATORY STUDIES: The patient had white count 7.2, hemoglobin 12.1, hematocrit 37.8, platelets 218. Chemistry: Sodium 141, potassium 4.4, chloride 103, bicarbonate 28. Liver function test is improving. On repeat liver function shows normal liver function with negative serology for hepatitis A, B, and C. IMPRESSION AND PLAN: 1. Gram-positive bacteremia, gram-positive Staphylococcus aureus. Continue IV nafcillin. The patient is being treated as it is endovascular infections bacteremia and endocarditis. Transesophageal echocardiogram is negative. Continue IV antibiotics, nafcillin. 2. Normal liver tests, improved. Hepatitis negative. 3. The patient has severe heroin addiction, cannot stop. We will start decreasing his medication. We are planning after the weekend to give him Sublocade while he is in the hospital, the patient agreed before discharge and will follow up as outpatient. Continue current therapy. Edson Weiss MD
[2018-12-13] MEDS: oxyCODONE 5 mg Immediate Release Tab PO PRN (18:08)
[2018-12-14] MEDS: oxyCODONE 5 mg Immediate Release Tab PO PRN ×3 (00:04→17:41)
--- NOTE | 2018-12-14 06:29 | PN ---
DATE: 12/11/2018 SUBJECTIVE: The patient is in bed, in no acute distress, nontoxic. PHYSICAL EXAMINATION: VITAL SIGNS: Temperature is 97, blood pressure is 112/70, respiratory rate 16. HEENT: Unremarkable. NECK: Supple. LUNGS: Have decreased breath sounds. HEART: Normal S1, S2. ABDOMEN: Soft. LABORATORY DATA: Reveals a white count of 7.2, hemoglobin of 12, and platelets of 218. Chemistries are noted. Toxicology is reviewed. Serology is noted; and microbiology is noted to be initially a sensitive Staph aureus. Repeat blood cultures are negative from 12/04/2018. The patient had a EUFEMIA, official report not available and unofficially I have been told that no vegetations were seen on EUFEMIA. Dr. Weiss's progress note is reviewed. ASSESSMENT AND PLAN: This is a 23-year-old patient who has had a transesophageal echocardiogram. According to Cardiology's note, there is no evidence of endocarditis. The patient with sensitive Staph aureus bacteremia secondary to intravenous drug abuse with a negative transesophageal echocardiogram and normal sed rate of 14 on C-reactive protein at 6.2, which is also normal, currently on nafcillin day #8. His cultures have become negative with a negative transesophageal echocardiogram. Should receive 14 to 21 days. We will be able to switch to p.o. antibiotics and follow closely with you. The patient's human immunodeficiency virus is negative. Hepatitis profile is negative. Lenny Vickers MD
[2018-12-14] MEDS: Enoxaparin 40 mg Syringe SC SCH (10:39)
[2018-12-14] MEDS: Pantoprazole 40 mg EC Tab PO SCH (10:42)
--- NOTE | 2018-12-14 14:56 | MRI ---
Date of service: 12/14/2018 PROCEDURE: MR LUMBAR SPINE WITHOUT CONTRAST HISTORY: r/o discitis / osteo/ pos ivda with staph in bc COMPARISON: None available. TECHNIQUE: Multiecho multiplanar sequences were performed through the lumbar spine without the use of intravenous contrast. FINDINGS: Straightened lumbar curvature. No spondylolisthesis.. Vertebral body heights are preserved. Marrow signal unremarkable. Vertebral body endplates appear adequately preserved throughout with no overt prevertebral or paraspinal fluid collection or mass identified. Conus medullaris unremarkable at the level of T12 inferior endplate. T12-L1: No disc herniation, spinal canal stenosis or neural foraminal narrowing. L1-2: No disc herniation, spinal canal stenosis or neural foraminal narrowing. L2-3: No disc herniation, spinal canal stenosis or neural foraminal narrowing. L3-4: No disc herniation, spinal canal stenosis or neural foraminal narrowing. L4-5: No disc herniation, spinal canal stenosis or neural foraminal narrowing. Minimal disc bulge appreciated. L5-S1: No disc herniation, spinal canal stenosis or neural foraminal narrowing. Minimal disc bulge inverts the ventral thecal sac without stenosis. OTHER FINDINGS: None. IMPRESSION: Straightened lumbar curvature without fracture or spondylolisthesis. No overt CT sign of disc herniation, central canal or neural foraminal stenosis throughout the study or suspicious pattern to suggest discitis/osteomyelitis. Typically, discitis osteomyelitis evaluation is done without and with intravenous gadolinium, however, discitis without osteomyelitis would be rare.
--- NOTE | 2018-12-14 15:00 | PN ---
DATE: 12/13/2018 SUBJECTIVE: Patient is stable, comfortable, in no distress. He is doing okay with the current regimen. Discussed with him about Sublocade and detox. PHYSICAL EXAMINATION: VITAL SIGNS: Temperature 98.4, heart rate 78, blood pressure 103/57, respirations 18, sat 98%. HEAD AND NECK: Normal. No JVD. No thyromegaly. CHEST: Clear bilateral. CARDIAC: First sound and second sound normal. ABDOMEN: Soft, nontender. EXTREMITIES: No edema. NEUROLOGIC: Normal. LABORATORY DATA: Shows sodium 140, potassium 3.5, chloride 102, bicarbonate 24, BUN 10, creatinine 0.6. Blood sugar 131. Liver function test is normal. C-reactive protein is 12.6. CBC, white count 8.1, hemoglobin 4.5, hematocrit 38.1, and platelets 216. IMPRESSION AND PLAN: 1. Gram-positive coccemia. We will continue IV nafcillin. The patient has sepsis, Staphylococcus aureus bacteremia. Negative EUFEMIA. Complains of back pain. Dr. Vickers will get an MRI of his back. We will continue 2 more weeks of IV nafcillin if MRI is negative. We will follow up with the specialist. Continue current therapy. 2. History of heroin use. The patient is currently off heroin. He is currently on Percocet. For now, we will give him the Sublocade soon while he is here. He has no evidence of bacteremia. So, we will discuss about the Sublocade injections. Edson Weiss MD
--- NOTE | 2018-12-14 21:07 | PN ---
DATE: 12/14/2018 SUBJECTIVE: The patient is in bed in no acute distress, nontoxic. PHYSICAL EXAMINATION: VITAL SIGNS: Temperature is 98, blood pressure is 110/60, and respiratory rate of 18. HEENT: Unremarkable. NECK: Supple. LUNGS: Have decreased breath sounds. HEART: Normal S1 and S2. ABDOMEN: Soft and nontender. LABORATORY EXAMINATION: Reveals a white count of 8.1, hemoglobin of 12, and platelets of 216. Chemistries are noted and repeat sed rate is 28. C-reactive protein is 12.6. Microbiology is noted. The patient has a MRI, which is negative of the spine. ASSESSMENT AND PLAN: This is a 23-year-old male, who is originally from [place], is an active intravenous drug abuser, admitted with sepsis with a sensitive staph aureus bacteremia. Negative TTE. Negative MRI of the spine. Today is day #11 of 14 days. May be able to switch to p.o. antibiotics to complete that number of therapy. Currently on nafcillin. Dr. Weiss's note is reviewed. Lenny Vickers MD
[2018-12-15] MEDS: oxyCODONE 5 mg Immediate Release Tab PO PRN
[2018-12-15] MEDS: Pantoprazole 40 mg EC Tab PO SCH (09:15)
[2018-12-15] MEDS ORDERED: Amoxicillin-Clav 875-125 mg Tab PO SCH (10:00)
[2018-12-15] MEDS: Enoxaparin 40 mg Syringe SC SCH (10:09)
--- NOTE | 2018-12-15 10:09 | PN ---
DATE: 12/14/2018 SUBJECTIVE: The patient is stable, comfortable and in no distress. No new complaints. Seems doing well with IV nafcillin; still needs more at least two weeks, from 10 days to 15 days of IV antibiotics. No other complaints. Tolerating medications well. PHYSICAL EXAMINATION: VITAL SIGNS: Temperature 98.1, heart rate 92, blood pressure 110/66, respiration 18, and saturation 98% on room air. HEAD AND NECK: Normal. No JVD. No thyromegaly. CHEST: Clear bilaterally. CARDIAC: First sound and second sound normal. ABDOMEN: Soft and nontender. EXTREMITIES: No edema. NEUROLOGIC: Normal. IMPRESSION: 1. Gram-positive bacteremia, sepsis, and possible endovascular infections. Transesophageal echocardiogram was negative. We will continue IV antibiotic to complete the course of one month on nafcillin. 2. Drug addiction problem. The patient is an IV heroin user. We will plan to give him the Sublocade. We will decrease his medication gradually, and we will follow up on that. PLAN: Continue current therapy. The patient is stable. Liver function test is normal. Discussed with the patient's family. Edson Weiss MD
--- NOTE | 2018-12-15 11:01 | CP.PCM.PN ---
<Vaughn Briscoe - Last Filed: 12/15/18 15:32> Subjective - Date & Time of Evaluation Date of Evaluation: 12/15/18 Time of Evaluation: 08:40 - Subjective Subjective: Infectious disease progress note: Patient seen and examined at bedside. No acute events overnight. Patient complains of mild back pain however denies any other complaints. No fevers. 12 point ROS performed and negative other than stated above Objective - Vital Signs/Intake and Output Vital Signs (last 24 hours): Temp Pulse Resp BP Pulse Ox 98.3 F 81 18 98/57 L 97 12/15/18 06:00 12/15/18 06:00 12/15/18 06:00 12/15/18 06:00 12/15/18 06:00 Intake and Output: 12/15/18 12/15/18 06:59 18:59 Intake Total 860 180 Balance 860 180 - Medications Medications: Current Medications Acetaminophen (Tylenol 325mg Tab) 650 mg PO Q4H PRN PRN Reason: Pain, Mild (1-3) Amoxicillin/Clavulanate Potassium (Augmentin 875 Mg-125 Mg Tab) 1 tab PO Q12 [facility]; Protocol Stop: 12/25/18 10:01 Clonazepam (Klonopin) 0.5 mg PO BID [facility]; Protocol Last Admin: 12/15/18 10:06 Dose: 0.5 mg Enoxaparin Sodium (Lovenox) 40 mg SC DAILY [facility]; Protocol Last Admin: 12/15/18 10:09 Dose: Not Given Ibuprofen (Motrin Tab) 400 mg PO Q6H PRN PRN Reason: Pain, moderate (4-7) Mirtazapine (Remeron) 15 mg PO HS [facility] Last Admin: 12/14/18 21:36 Dose: 15 mg Nicotine (Nicoderm Cq) 1 patch TD DAILY [facility] Last Admin: 12/15/18 10:06 Dose: 1 patch Oxycodone HCl (Oxycodone Immediate Release Tab) 5 mg PO Q4H PRN PRN Reason: Pain, severe (8-10) Last Admin: 12/15/18 00:00 Dose: 5 mg Pantoprazole Sodium (Protonix Ec Tab) 40 mg PO ACB [facility] Last Admin: 12/15/18 09:15 Dose: 40 mg Paroxetine HCl (Paxil) 10 mg PO DAILY [facility] Last Admin: 12/15/18 10:07 Dose: 10 mg Pregabalin (Lyrica) 50 mg PO BID [facility] Last Admin: 12/15/18 10:08 Dose: 50 mg Tizanidine HCl (Zanaflex) 4 mg PO TID [facility] Last Admin: 12/15/18 10:07 Dose: 4 mg - Labs Labs: 12/13/18 08:35 12/13/18 08:35 - Constitutional Appears: No Acute Distress - Eye Exam Eye Exam: EOMI - Respiratory Exam Respiratory Exam: Clear to Ausculation Bilateral. absent: Rales, Wheezes - Cardiovascular Exam Cardiovascular Exam: REGULAR RHYTHM, +S1, +S2 - GI/Abdominal Exam GI & Abdominal Exam: Soft. absent: Tenderness - Extremities Exam Extremities Exam: absent: Calf Tenderness, Pedal Edema - Neurological Exam Neurological Exam: Alert, Awake - Psychiatric Exam Psychiatric exam: Normal Mood - Skin Skin Exam: Dry, Warm Assessment and Plan - Assessment and Plan (Free Text) Assessment: Sepsis with bacteremia with staph aureus - probable endocarditis IV drug abuse with heroin Active smoker Transaminitis Continue with Nafcillin day 12 of 14 days MRI of the lumbar spine was negative for discitis / osteomyelitis Follow-up cardiology recs - EUFEMIA neg Repeat blood cultures - neg Continue to monitor for any changes Case and plan was to be reviewed and discussed with Dr. Vickers <Lenny Vickers - Last Filed: 12/15/18 15:35> Objective - Vital Signs/Intake and Output Vital Signs (last 24 hours): Temp Pulse Resp BP Pulse Ox 98.1 F 73 18 108/57 L 97 12/15/18 14:00 12/15/18 14:00 12/15/18 14:00 12/15/18 14:00 12/15/18 14:00 Intake and Output: 12/15/18 12/15/18 06:59 18:59 Intake Total 860 180 Balance 860 180 - Medications Medications: Current Medications Acetaminophen (Tylenol 325mg Tab) 650 mg PO Q4H PRN PRN Reason: Pain, Mild (1-3) Amoxicillin/Clavulanate Potassium (Augmentin 875 Mg-125 Mg Tab) 1 tab PO Q12 [facility]; Protocol Stop: 12/25/18 10:01 Last Admin: 12/15/18 11:34 Dose: 1 tab Clonazepam (Klonopin) 0.5 mg PO BID [facility]; Protocol Last Admin: 12/15/18 10:06 Dose: 0.5 mg Enoxaparin Sodium (Lovenox) 40 mg SC DAILY [facility]; Protocol Last Admin: 12/15/18 10:09 Dose: Not Given Ibuprofen (Motrin Tab) 400 mg PO Q6H PRN PRN Reason: Pain, moderate (4-7) Mirtazapine (Remeron) 15 mg PO HS [facility] Last Admin: 12/14/18 21:36 Dose: 15 mg Nicotine (Nicoderm Cq) 1 patch TD DAILY [facility] Last Admin: 12/15/18 10:06 Dose: 1 patch Oxycodone HCl (Oxycodone Immediate Release Tab) 5 mg PO Q4H PRN PRN Reason: Pain, severe (8-10) Last Admin: 12/15/18 00:00 Dose: 5 mg Pantoprazole Sodium (Protonix Ec Tab) 40 mg PO ACB [facility] Last Admin: 12/15/18 09:15 Dose: 40 mg Paroxetine HCl (Paxil) 10 mg PO DAILY [facility] Last Admin: 12/15/18 10:07 Dose: 10 mg Pregabalin (Lyrica) 50 mg PO BID [facility] Last Admin: 12/15/18 10:08 Dose: 50 mg Tizanidine HCl (Zanaflex) 4 mg PO TID [facility] Last Admin: 12/15/18 14:29 Dose: 4 mg - Labs Labs: 12/13/18 08:35 12/13/18 08:35 Attending/Attestation - Attestation I have personally seen and examined this patient.: Yes I have fully participated in the care of the patient.: Yes I have reviewed all pertinent clinical information, including history, physical exam and plan: Yes
--- NOTE | 2018-12-15 12:23 | PN ---
DATE: 12/15/2018 SUBJECTIVE: The patient is in bed, in no acute distress, nontoxic. PHYSICAL EXAMINATION: VITAL SIGNS: Temperature is 98, blood pressure is 96/50, respiratory rate of 18. HEENT: Unremarkable. NECK: Supple. LUNGS: Have decreased breath sounds. HEART: Normal S1, S2. ABDOMEN: Soft, nontender. LABORATORY DATA: Laboratory examination reveals a white count of 8.1 and repeat sed rate is 28. Chemistries are noted and C-reactive protein is 6.2, was slightly elevated at 12.6. Toxicology is noted. Serology is reviewed. The patient had Microbiology is reviewed. MRI of the spine is noted. Review of orders reveals the patient to be on nafcillin. ASSESSMENT AND PLAN: This is a 23-year-old [place] male who is an active intravenous drug abuse, admitted with sepsis with a sensitive Staphylococcus aureus bacteremia, negative EUFEMIA, negative MRI. Today is day #12 of antibiotics. We will discontinue nafcillin and switch to Augmentin 875 p.o. b.i.d. x10 days. Lenny Vickers MD
[2018-12-16] MEDS ORDERED: SUBUTEX PO PRN (06:00)
--- NOTE | 2018-12-16 07:53 | CP.PCM.PN ---
<Vaughn Briscoe - Last Filed: 12/16/18 12:30> Subjective - Date & Time of Evaluation Date of Evaluation: 12/16/18 Time of Evaluation: 09:00 - Subjective Subjective: Infectious disease progress note: Pt seen and examined at bedside. No acute events overnight. Denies any back pain. No fevers or chills. Doing well. 12 Point ROS performed and neg other than stated above Objective - Vital Signs/Intake and Output Vital Signs (last 24 hours): Temp Pulse Resp BP Pulse Ox 98.3 F 90 20 99/58 L 99 12/15/18 21:18 12/15/18 21:18 12/15/18 21:18 12/15/18 21:18 12/15/18 21:18 Intake and Output: 12/16/18 12/16/18 06:59 18:59 Intake Total 680 Balance 680 - Medications Medications: Current Medications Acetaminophen (Tylenol 325mg Tab) 650 mg PO Q4H PRN PRN Reason: Pain, Mild (1-3) Clonazepam (Klonopin) 0.5 mg PO DAILY [facility]; Protocol PRN Reason: Anxiety Enoxaparin Sodium (Lovenox) 40 mg SC DAILY [facility]; Protocol Last Admin: 12/15/18 10:09 Dose: Not Given Home Med (Home Med) 1 unit PO TID PRN PRN Reason: withdrawal Nafcillin Sodium 2 gm/ (Dextrose) 100 mls @ 100 mls/hr IVPB Q6 [facility]; Protocol Last Admin: 12/16/18 06:34 Dose: 100 mls/hr Ibuprofen (Motrin Tab) 400 mg PO Q6H PRN PRN Reason: Pain, moderate (4-7) Mirtazapine (Remeron) 15 mg PO HS [facility] Last Admin: 12/15/18 21:46 Dose: 15 mg Nicotine (Nicoderm Cq) 1 patch TD DAILY [facility] Last Admin: 12/15/18 10:06 Dose: 1 patch Pantoprazole Sodium (Protonix Ec Tab) 40 mg PO ACB [facility] Last Admin: 12/15/18 09:15 Dose: 40 mg Paroxetine HCl (Paxil) 10 mg PO DAILY [facility] Last Admin: 12/15/18 10:07 Dose: 10 mg Pregabalin (Lyrica) 50 mg PO BID [facility] Last Admin: 12/15/18 17:46 Dose: 50 mg Tizanidine HCl (Zanaflex) 4 mg PO TID [facility] Last Admin: 12/15/18 17:47 Dose: 4 mg - Labs Labs: 12/13/18 08:35 12/13/18 08:35 - Constitutional Appears: No Acute Distress - Head Exam Head Exam: ATRAUMATIC, NORMOCEPHALIC - Eye Exam Eye Exam: EOMI - ENT Exam ENT Exam: Mucous Membranes Moist - Respiratory Exam Respiratory Exam: Clear to Ausculation Bilateral. absent: Rales, Rhonchi, Wheezes - Cardiovascular Exam Cardiovascular Exam: REGULAR RHYTHM, +S1, +S2 - GI/Abdominal Exam GI & Abdominal Exam: Soft. absent: Tenderness - Extremities Exam Extremities Exam: absent: Calf Tenderness, Pedal Edema - Neurological Exam Neurological Exam: Alert, Awake, Oriented x3 - Psychiatric Exam Psychiatric exam: Normal Mood - Skin Skin Exam: Dry, Warm Assessment and Plan - Assessment and Plan (Free Text) Assessment: Sepsis with bacteremia with staph aureus - probable endocarditis IV drug abuse with heroin Active smoker Transaminitis Continue Nafcillin day 13 of 14 days, Can d/c on Augmentin 875mg BID for 10 days. Follow-up cardiology recs - EUFEMIA neg Repeat blood cultures - neg Continue to monitor for any changes Case and plan was to be reviewed and discussed with Dr. Vickers <Lenny Vickers - Last Filed: 12/16/18 12:34> Objective - Vital Signs/Intake and Output Vital Signs (last 24 hours): Temp Pulse Resp BP Pulse Ox 97.6 F 75 18 108/68 99 12/16/18 06:00 12/16/18 06:00 12/16/18 06:00 12/16/18 06:00 12/16/18 06:00 Intake and Output: 12/16/18 12/16/18 06:59 18:59 Intake Total 680 Balance 680 - Medications Medications: Current Medications Acetaminophen (Tylenol 325mg Tab) 650 mg PO Q4H PRN PRN Reason: Pain, Mild (1-3) Clonazepam (Klonopin) 0.5 mg PO DAILY [facility]; Protocol PRN Reason: Anxiety Enoxaparin Sodium (Lovenox) 40 mg SC DAILY [facility]; Protocol Last Admin: 12/16/18 10:23 Dose: Not Given Home Med (Home Med) 1 unit PO TID PRN PRN Reason: withdrawal Nafcillin Sodium 2 gm/ (Dextrose) 100 mls @ 100 mls/hr IVPB Q6 [facility]; Protocol Last Admin: 12/16/18 06:34 Dose: 100 mls/hr Ibuprofen (Motrin Tab) 400 mg PO Q6H PRN PRN Reason: Pain, moderate (4-7) Mirtazapine (Remeron) 15 mg PO HS [facility] Last Admin: 12/15/18 21:46 Dose: 15 mg Nicotine (Nicoderm Cq) 1 patch TD DAILY [facility] Last Admin: 12/16/18 09:44 Dose: 1 patch Pantoprazole Sodium (Protonix Ec Tab) 40 mg PO ACB [facility] Last Admin: 12/16/18 09:44 Dose: 40 mg Paroxetine HCl (Paxil) 10 mg PO DAILY [facility] Last Admin: 12/16/18 09:44 Dose: 10 mg Pregabalin (Lyrica) 50 mg PO BID [facility] Last Admin: 12/16/18 09:44 Dose: 50 mg Tizanidine HCl (Zanaflex) 4 mg PO TID [facility] Last Admin: 12/16/18 09:44 Dose: 4 mg - Labs Labs: 12/13/18 08:35 12/13/18 08:35 Attending/Attestation - Attestation I have personally seen and examined this patient.: Yes I have fully participated in the care of the patient.: Yes I have reviewed all pertinent clinical information, including history, physical exam and plan: Yes
[2018-12-16 08:07] VITALS: RESP 18
[2018-12-16] MEDS: Enoxaparin 40 mg Syringe SC SCH ×2 (09:43→10:23)
[2018-12-16] MEDS: Pantoprazole 40 mg EC Tab PO SCH (09:44)
--- NOTE | 2018-12-16 12:28 | PN ---
DATE: 12/15/2018 SUBJECTIVE: The patient is stable, comfortable. No chest pain. No shortness of breath. IV antibiotics . The patient will be discharged in 2-3 days. We will start the patient on Suboxone for his addiction. The patient has been on Suboxone before for more than 10 days to weeks, has been intermittently because of noncompliance and addiction behavior, but otherwise he is stable, tolerating it well, no side effects, more energy. No other complaints. PHYSICAL EXAMINATION: VITAL SIGNS: Temperature is 98, heart rate 90, blood pressure 108/57, respiration 20, and saturation 99%. HEAD AND NECK: Normal. No JVD. No thyromegaly. CHEST: Clear bilaterally. CARDIAC: First sound and second sound normal. No murmur, rub, or gallop. ABDOMEN: Soft and nontender. EXTREMITIES: No edema. NEUROLOGICAL: Normal. IMPRESSION AND PLAN: 1. Gram-positive bacteremia from intravenous drug use. Endocarditis, transesophageal echocardiogram is negative. We will continue intravenous nafcillin for 2 more days. Discussed with Infectious Disease consult. 2. Drug use disorder, heroin intravenously. High risk of dying from the heroin use. Family complains worry about him, having been uncontrollable drug use in spite of counseling, sitting with him. They agree about treatment, agree about the injections and will continue supporting him. His liver functions grossly normal. Negative hepatitis C. The patient used Suboxone in the past and tolerating it well without any side effects. We will proceed with injections. Edson Weiss MD
[2018-12-16] MEDS ORDERED: SUBUTEX 8 MG PO PRN (14:53)
[2018-12-16] MEDS: SUBUTEX 8 MG PO SCH (18:25)
--- NOTE | 2018-12-17 07:49 | CP.PCM.PN ---
Subjective - Date & Time of Evaluation Date of Evaluation: 12/17/18 Time of Evaluation: 10:00 - Subjective Subjective: Infectious disease progress note: Pt seen and examined at bedside. No acute events overnight. No fevers. Doing well. No complaints. 12 Point ROS performed and neg other than stated above Objective - Vital Signs/Intake and Output Vital Signs (last 24 hours): Temp Pulse Resp BP Pulse Ox 98.1 F 73 18 121/71 98 12/16/18 22:33 12/16/18 22:33 12/16/18 22:33 12/16/18 22:33 12/16/18 22:33 Intake and Output: 12/17/18 12/17/18 06:59 18:59 Intake Total 1100 Balance 1100 - Medications Medications: Current Medications Acetaminophen (Tylenol 325mg Tab) 650 mg PO Q4H PRN PRN Reason: Pain, Mild (1-3) Clonazepam (Klonopin) 0.5 mg PO DAILY PRN; Protocol PRN Reason: Anxiety Last Admin: 12/16/18 22:52 Dose: 0.5 mg Home Med (Home Med) 1 unit PO BID [facility] [place] Last Admin: 12/16/18 18:25 Dose: 1 unit Home Med (Home Med) 1 unit PO DAILY PRN PRN Reason: withdrawal Nafcillin Sodium 2 gm/ (Dextrose) 100 mls @ 100 mls/hr IVPB Q6 [facility] [place]; Protocol Last Admin: 12/17/18 06:50 Dose: 100 mls/hr Ibuprofen (Motrin Tab) 400 mg PO Q6H PRN PRN Reason: Pain, moderate (4-7) Last Admin: 12/16/18 18:25 Dose: 400 mg Mirtazapine (Remeron) 15 mg PO HS [facility] [place] Last Admin: 12/16/18 22:53 Dose: 15 mg Nicotine (Nicoderm Cq) 1 patch TD DAILY [facility] [place] Last Admin: 12/16/18 09:44 Dose: 1 patch Pantoprazole Sodium (Protonix Ec Tab) 40 mg PO ACB IVAN Last Admin: 12/16/18 09:44 Dose: 40 mg Paroxetine HCl (Paxil) 10 mg PO DAILY [facility]AN Last Admin: 12/16/18 09:44 Dose: 10 mg Pregabalin (Lyrica) 50 mg PO BID [facility] [place] Last Admin: 12/16/18 18:24 Dose: 50 mg Tizanidine HCl (Zanaflex) 4 mg PO TID [facility] [place] Last Admin: 12/16/18 18:24 Dose: 4 mg - Labs Labs: 12/13/18 08:35 12/13/18 08:35 - Constitutional Appears: No Acute Distress - Eye Exam Eye Exam: EOMI - Respiratory Exam Respiratory Exam: Clear to Ausculation Bilateral. absent: Rales, Wheezes - Cardiovascular Exam Cardiovascular Exam: REGULAR RHYTHM, RRR, +S1, +S2 - GI/Abdominal Exam GI & Abdominal Exam: Soft. absent: Tenderness - Extremities Exam Extremities Exam: absent: Calf Tenderness, Pedal Edema - Neurological Exam Neurological Exam: Alert, Awake - Psychiatric Exam Psychiatric exam: Normal Mood - Skin Skin Exam: Dry, Warm Assessment and Plan - Assessment and Plan (Free Text) Assessment: Sepsis with bacteremia with staph aureus - probable endocarditis IV drug abuse with heroin Active smoker Transaminitis Continue with Nafcillin day 14 of 14 days, Upon discharge he can go with Augmentin 875mg BID for 10 days. Follow-up cardiology recs - EUFEMIA neg Repeat blood cultures - neg Continue to monitor for any changes Case and plan was to be reviewed and discussed with Dr. Vickers
[2018-12-17] MEDS: Pantoprazole 40 mg EC Tab PO SCH (10:02)
[2018-12-17] MEDS: SUBUTEX 8 MG PO SCH (10:11)
[2018-12-17 15:36] VITALS: BP 123/72; PULSE 97; TEMP 98.3; O2SAT 99
--- NOTE | 2018-12-19 01:47 | DS ---
The patient was seen on 12/17/2018, and also seen on 12/16/2018. HISTORY OF PRESENT ILLNESS: He was started on Subutex dose, seems to be tolerating well. The patient wants to go home and get the injections from someone who caters in the office. I spoke with the father of the patient. He has Subutex dose for 10 days. I will see him on coming Thursday or Thursday. The patient has no distress. He finished his antibiotic IV. Infectious Disease started him off. We will give him Augmentin for 15 days and he will continue current therapy. PHYSICAL EXAMINATION: VITAL SIGNS: Temperature 98.3, heart rate 97, blood pressure 123/72, respirations 18, and sat 99%. HEAD AND NECK: Normal. No JVD. No thyromegaly. CHEST: Clear bilateral. CARDIAC: First sound and second sound normal. ABDOMEN: Soft and nontender. EXTREMITIES: No edema. NEUROLOGIC: Normal. IMPRESSION: 1. Gram-positive cocci. Continue Augmentin for 10 days. 2. Chronic drug use disorder, heroin use. PLAN: The patient was given Neurontin, Remeron, clonazepam, Zanaflex, and Subutex dose twice a day or three times a day if needed. I will see him on Thursday or Thursday for completion of Subutex injection. Edson Weiss MD
== END 2018-12-17 16:29 | disposition home or self-care (01) | DRG 720 ==
LOC: ED 15:30 → ERH 17:23 → 5RNO 19:12
PROVIDERS: ADMIT Internal Medicine; ATTEND Internal Medicine
PROC: B24BZZ4 Ultrasonography of Heart with Aorta, Transesophageal (ICD-10-PCS; principal; 2018-12-11)
DX: A41.01 Sepsis due to Methicillin susceptible Staphylococcus aureus (principal); F11.10 Opioid abuse, uncomplicated; F12.90 Cannabis use, unspecified, uncomplicated; F41.9 Anxiety disorder, unspecified; F17.210 Nicotine dependence, cigarettes, uncomplicated; Z91.19 Patient's noncompliance with other medical treatment and regimen